=== PATIENT | female | born 1980 | race Caucasian/White ===

== ENCOUNTER 2023-08-27 13:48 | Inpatient (IN) ==
[2023-08-27 16:13] LABS: Basophils # (auto) 0.03 K/uL (0.00-0.20); Basophils % (auto) 0.4 %; Eosinophils % (auto) 1.5 %; Hematocrit (blood only) 36.9 % (37.0-47.0); Hemoglobin 11.3 g/dl (12.0-16.0); Immature Granulocytes # (auto) 0.03 K/uL (0.01-0.20); Immature Granulocytes % (auto) 0.4 %; Lymphocytes # (auto) 2.22 K/uL (1.20-3.40); Lymphocytes % (auto) 32.9 %; Mean Corpuscular Hemoglobin 27.2 pg (25.0-34.0); Mean Corpuscular Hgb Conc 30.6 g/dL (32.0-36.0); Mean Corpuscular Volume 88.9 fL (80.0-100.0); Mean Platelet Volume 9.1 fL (9.4-12.4); Monocytes # (auto) 0.52 K/uL (0.11-0.59); Monocytes % (auto) 7.7 %; Neutrophils # (auto) 3.85 K/uL (1.40-6.50); Neutrophils % (auto) 57.1 %; Platelet Count 228 K/uL (130-400); RDW Coefficient of Variation 15.6 % (11.5-14.5); RDW Standard Deviation 50.4 fL (36.4-46.3); Red Blood Count 4.15 M/uL (4.20-5.40); White Blood Count 6.75 K/ul (4.8-10.8)
[2023-08-27 16:28] LABS: Alanine Aminotransferase 11 U/L (7-52); Albumin Globulin Ratio 0.9 (0.9-2); Albumin Level 3.5 gm/dl (3.4-5.0); Alkaline Phosphatase 68 U/L (34-104); Anion Gap 5 (3-11); Aspartate Aminotransferase 17 U/L (13-39); BUN Creatinine Ratio 20.2 (10-20); Bilirubin,Total 0.4 mg/dl (0.2-1.0); Blood Urea Nitrogen 18 mg/dl (6-23); Calcium 8.5 mg/dl (8.6-10.3); Carbon Dioxide 25 mmol/L (21-32); Chloride 106 mmol/L (98-107); Est GFR (African American) 91.4 ml/min; Est GFR (Non-African American) 78.8 ml/min; Globulin 3.8 gm/dl (2.5-4.0); Glucose 134 mg/dl (70-99(Fasting)); Potassium 4.1 mmol/L (3.5-5.1); Sodium 136 mmol/L (136-145); Total Protein 7.3 gm/dl (6.0-8.3)
[2023-08-27 16:45] LABS: Partial Thromboplastin Time 26.8 Seconds (21.0-31.0); Prothrombin Time 10.5 Seconds (9.0-12.0)
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
[2023-08-27] MEDS ORDERED: oxyCODONE/ACETAMINOPHEN 5mg/325mg TAB PO STA (18:14)
[2023-08-27] MEDS ORDERED: OPTIRAY 320 500ml IV ONE (18:37)
--- NOTE | 2023-08-27 20:29 | CT Scan Report ---
Exam(s): CT ABDOMEN + PELVIS With Contrast IV Amt: 94ML OPTIRAY 320 EXAM: CT Abdomen and Pelvis With Intravenous Contrast CLINICAL HISTORY: Reason for exam: R back infection w/ open drainage. TECHNIQUE: Axial computed tomography images of the abdomen and pelvis with intravenous contrast. CTDI is 28.14 mGy and DLP is 1479.25 mGy-cm. Automated exposure control was utilized for the study. A dose lowering technique was utilized adhering to the principles of ALARA. CONTRAST: Patient received 94ML OPTIRAY 320 of IV contrast COMPARISON: None. FINDINGS: Lung bases: Bilateral lower lobe and lingular atelectasis. Heart: Unremarkable. No significant pericardial effusion. Normal cardiac size. ABDOMEN: Liver: Unremarkable. No mass. Gallbladder and bile ducts: Status post cholecystectomy. No ductal dilation. Pancreas: Unremarkable. No mass. No ductal dilation. Spleen: Unremarkable. No splenomegaly. Adrenals: Unremarkable. No mass. Kidneys and ureters: Unremarkable. No solid mass. No hydronephrosis. Stomach and bowel: Moderate to abundant fecal debris within the colon. No obstruction. No mucosal thickening. PELVIS: Appendix: Distinct appendix not visualized with no inflammatory process to suggest appendicitis. Bladder: Urinary bladder is decompressed. Reproductive: Anteverted uterus . ABDOMEN and PELVIS: Intraperitoneal space: Trace free fluid in the cul-de-sac, nonspecific. No free air. Bones/joints: Posterior fusion from L3-L5. Mild degenerative disease of the lower thoracic spine, bilateral SI joints and hips. There is mild stranding involving the posterior subcutaneous fat at the approximate T10. There are destructive changes involving the spinous process of T10 and posterolateral elements concerning for osteomyelitis. There is questionable small fluid collection identified at the tip of T9 spinous process measuring 5.4 x 1.0 cm concerning for a small abscess. There are inflammatory changes surrounding the soft tissues from spinous process of T8-T10. No acute fracture. No dislocation. Soft tissues: See above. Vasculature: Unremarkable. No abdominal aortic aneurysm. Lymph nodes: Unremarkable. No enlarged lymph nodes. IMPRESSION: 1. Findings most compatible with osteomyelitis involving the T10 level with extension into the posterior elements. Extensive inflammatory process within the soft tissues from spinous process of T8-T10 with suggestion of a small abscess at the tip of the spinous process of T9 vertebra. 2. Possible mild constipation, otherwise no acute process within the abdomen and pelvis be 3. Status post cholecystectomy, remainder of abdominal viscera are unremarkable. Electronically signed by: Ronda Steward MD 08/27/23 20:27 PM
[2023-08-27] MEDS ORDERED: VANCOMYCIN CONSULT ACTIVE PRN (20:46)
[2023-08-27] MEDS ORDERED: VANCOMYCIN HCL 2,750 MG in SODIUM CHLORIDE 0.9% 500 ML IV ONE (20:46)
[2023-08-27] MEDS ORDERED: LACTATED RINGER'S 1,000 ML IV SCH (22:51)
[2023-08-27] MEDS ORDERED: PROMETHAZINE HCL 12.5 MG in SODIUM CHLORIDE 0.9% 50 ML IV PRN (22:51)
[2023-08-27] MEDS ORDERED: ONDANSETRON INJ 2 MG/ML 2 ML VIAL IV PRN (22:51)
[2023-08-27] MEDS ORDERED: ACETAMINOPHEN 1,000 MG/100 ML VIAL IV PRN (22:51)
[2023-08-27] MEDS ORDERED: ONDANSETRON 4 MG OD TAB PO PRN (22:51)
[2023-08-27] MEDS ORDERED: LORazepam 0.5 MG TAB PO PRN (22:51)
[2023-08-27] MEDS ORDERED: PHARMACY GLYCEMIC MGMT CONSULT PRN (22:51)
[2023-08-27] MEDS ORDERED: METOCLOPRAMIDE HCL INJ 5 MG/ML 2 ML VIAL IV PRN (22:51)
[2023-08-27] MEDS ORDERED: NALOXONE HCL 0.4 MG/1 ML VIAL/CARP IV PRN (22:51)
[2023-08-27 23:39] LABS: Basophils # (auto) 0.05 K/uL (0.00-0.20); Basophils % (auto) 0.8 %; Eosinophils # (auto) 0.11 K/uL (0.00-0.50); Eosinophils % (auto) 1.8 %; Hematocrit (blood only) 32.9 % (37.0-47.0); Hemoglobin 10.2 g/dl (12.0-16.0); Immature Granulocytes # (auto) 0.02 K/uL (0.01-0.20); Immature Granulocytes % (auto) 0.3 %; Lymphocytes # (auto) 2.24 K/uL (1.20-3.40); Lymphocytes % (auto) 36.7 %; Mean Corpuscular Hemoglobin 27.2 pg (25.0-34.0); Mean Corpuscular Volume 87.7 fL (80.0-100.0); Mean Platelet Volume 9.1 fL (9.4-12.4); Monocytes % (auto) 8.2 %; Neutrophils # (auto) 3.19 K/uL (1.40-6.50); Neutrophils % (auto) 52.2 %; Platelet Count 202 K/uL (130-400); RDW Coefficient of Variation 15.6 % (11.5-14.5); RDW Standard Deviation 49.5 fL (36.4-46.3); Red Blood Count 3.75 M/uL (4.20-5.40); White Blood Count 6.11 K/ul (4.8-10.8)
[2023-08-27 23:56] LABS: Albumin Level 3.2 gm/dl (3.4-5.0); BUN Creatinine Ratio 21.4 (10-20); Bilirubin,Total 0.3 mg/dl (0.2-1.0); Calcium 7.7 mg/dl (8.6-10.3); Creatinine Clr Calc Pharmacy 118.2 ml/min; Est GFR (Non-African American) 84.5 ml/min; Globulin 3.2 gm/dl (2.5-4.0); Potassium 3.7 mmol/L (3.5-5.1); Total Protein 6.4 gm/dl (6.0-8.3)
[2023-08-27 23:58] LABS: Pregnancy Test, Serum Negative (Negative)
[2023-08-28] MEDS ORDERED: TOPIRAMATE 25 MG TAB PO SCH ×2 (00:15→09:00)
[2023-08-28] MEDS ORDERED: GLUCOSE 10 TAB/TUBE PO PRN (00:30)
[2023-08-28] MEDS ORDERED: GLUCAGON FOR INJ 1 MG VIAL IM PRN (00:30)
[2023-08-28] MEDS ORDERED: CARBOHYDRATES FOR HYPOGLYCEMIA PO PRN (00:30)
[2023-08-28] MEDS ORDERED: GLUCOSE 40% GEL 15 GM TUBE PO PRN (00:30)
[2023-08-28] MEDS ORDERED: DEXTROSE 50% 50 ML SYRINGE IV PRN (00:30)
[2023-08-28] MEDS ORDERED: CEFEPIME 2,000 MG/20 ML VIAL IV STA (00:34)
[2023-08-28] MEDS ORDERED: LACTATED RINGER'S 1,000 ML IV ONE (01:13)
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
[2023-08-28] MEDS: TOPIRAMATE 50 MG TAB PO SCH ×3 (01:47→20:38)
[2023-08-28] MEDS: PROPRANOLOL HCL 10 MG TAB PO SCH ×3 (01:48→20:38)
[2023-08-28] MEDS: MELATONIN 3 MG TAB PO SCH ×2 (01:50→21:33)
[2023-08-28] MEDS: oxyCODONE HCL IR 5 MG TAB (IMMEDIATE RELEASE) PO PRN ×3 (01:50→17:55)
[2023-08-28] MEDS: INSULIN ASPART PER UNIT CHARGE SC SCH ×5 (02:01→20:42)
[2023-08-28] MEDS: ZOLPIDEM TARTRATE 10 MG TAB PO PRN ×2 (02:02→21:33)
[2023-08-28] MEDS: CEFEPIME 2,000 MG in SYRINGE 0 ML IV SCH ×3 (02:05→17:50)
[2023-08-28] MEDS: LEVOTHYROXINE SODIUM 75 MCG TABLET PO SCH ×2 (06:44→08:08)
[2023-08-28 07:22] LABS: Basophils # (auto) 0.04 K/uL (0.00-0.20); Basophils % (auto) 0.6 %; Eosinophils # (auto) 0.13 K/uL (0.00-0.50); Hematocrit (blood only) 31.2 % (37.0-47.0); Hemoglobin 9.8 g/dl (12.0-16.0); Immature Granulocytes # (auto) 0.02 K/uL (0.01-0.20); Immature Granulocytes % (auto) 0.3 %; Lymphocytes # (auto) 1.95 K/uL (1.20-3.40); Lymphocytes % (auto) 30.7 %; Mean Corpuscular Hemoglobin 27.7 pg (25.0-34.0); Mean Corpuscular Hgb Conc 31.4 g/dL (32.0-36.0); Mean Corpuscular Volume 88.1 fL (80.0-100.0); Mean Platelet Volume 9.3 fL (9.4-12.4); Monocytes # (auto) 0.55 K/uL (0.11-0.59); Monocytes % (auto) 8.7 %; Neutrophils # (auto) 3.66 K/uL (1.40-6.50); Neutrophils % (auto) 57.7 %; Platelet Count 190 K/uL (130-400); RDW Coefficient of Variation 15.6 % (11.5-14.5); RDW Standard Deviation 49.2 fL (36.4-46.3); Red Blood Count 3.54 M/uL (4.20-5.40); White Blood Count 6.35 K/ul (4.8-10.8)
[2023-08-28 07:59] LABS: BUN Creatinine Ratio 22.4 (10-20); Calcium 7.8 mg/dl (8.6-10.3); Creatinine Clr Calc Pharmacy 130.6 ml/min; Est GFR (African American) 110.6 ml/min; Est GFR (Non-African American) 95.4 ml/min; Potassium 3.6 mmol/L (3.5-5.1)
[2023-08-28] MEDS: DIVALPROEX DELAY RELEASE 500 MG TAB PO SCH (08:08)
[2023-08-28] MEDS: GABAPENTIN 600 MG TAB PO SCH ×2 (08:08→20:38)
[2023-08-28] MEDS: buPROPion XL 150 MG TABCR PO SCH (08:08)
[2023-08-28] MEDS: PANTOprazole 40 MG TAB PO SCH (08:09)
[2023-08-28] MEDS: QUEtiapine FUMARATE 100 MG TABLET PO SCH (08:09)
[2023-08-28] MEDS: VENLAFAXINE HCL XR 75 MG CAPXR PO SCH (08:13)
[2023-08-28] MEDS: VENLAFAXINE HCL XR 150 MG CAPXR PO SCH (08:13)
[2023-08-28] MEDS ORDERED: PROPRANOLOL HCL 10 MG TAB PO SCH (09:00)
[2023-08-28] MEDS: VANCOMYCIN HCL 1,250 MG in SODIUM CHLORIDE 0.9% 250 ML IV SCH ×2 (09:08→20:37)
[2023-08-28] MEDS ORDERED: POLYETHYLENE (MIRALAX) 17 GM PACK PO PRN (09:47)
[2023-08-28 09:51] LABS: Estimated Average Glucose 163 mg/dl; Hemoglobin A1C 7.3 % (4.5-5.6)
--- NOTE | 2023-08-28 10:38 | Pharmacy Report ---
Pharmacy PK ABX Note - Date of Service August 28, 2023 - Assessment and Plan Assessment 43 year old F receiving vancomycin and cefepime for treatment of possible osteomyelitis/paravertebral abscess. * Day #1 of antimicrobial therapy. * HPI significant for spinal cord stimulator implanted in 06/2023 which subsequently became infected and required removal in 07/2023. * Wound cx from back in 07/2023 grew MSSA. Patient discharged on Nafcillin 2 g IV q6h x 6 weeks. * Labs/Vitals: Afebrile. No leukocytosis. Renal fxn stable. * Micro: Repeat blood cultures ordered and pending. * Imaging: * 08/27/23 CT A/P: "Findings most compatible with osteomyelitis involving the T10 level with extension into the posterior elements. Extensive inflammatory process within the soft tissues from spinous process of T8-T10 with suggestion of a small abscess at the tip of the spinous process of T9 vertebra." Plan Vancomycin * Loading dose: 2750 mg IV x 1 * Maintenance dose: 1250 mg IV every 12 hours * Regimen is predicted to achieve target AUC/STEPHANIE of 400-600 mg/L.hr * Random level ordered for: 08/30/23 Cefepime * 2000 mg IV every 8 hours Pharmacy will continue to follow and will adjust dose/frequency as necessary. Thank you. Pharmacy has transitioned to AUC monitoring for vancomycin. AUC/STEPHANIE is the preferred PK/PD target and is associated with decreased risk of nephrotoxicity compared to traditional trough targets.
--- NOTE | 2023-08-28 10:43 | Pharmacy Report ---
Pharmacy Glycemic Short Note 2 - Date of Service August 28, 2023 - Glycemic Short BSG Results (Last 24 hours): 08/27/23 08/27/23 08/28/23 15:47 23:15 01:46 Glucose 134 H 159 H POC Glucose 172 H 08/28/23 08/28/23 06:41 08:20 Glucose 120 H POC Glucose 129 H OUTPATIENT ANTIDIABETIC REGIMEN: * Metformin 500 mg PO AM * HbA1c: 7.3% (08/28/23) ASSESSMENT: * 43 yo F admitted on 08/27/23 secondary to possible vertebral osteomyelitis/abscess. Pharmacy has been consulted to assist with inpatient glycemic management. Patient is a Type 2 diabetic as an outpatient. Please refer to outpatient regimen and most recent HbA1c above. * BSGs have been at or near goal range since arrival: 134-159-172 mg/dL. * Fasting BSG 129 mg/dL, controlled. Continue to hold basal insulin. Possibility of surgical intervention. * Ordered and tolerating a regular diet so far. Continue with bolus insulin only for now. May need to transition to T2DM diet if steroids ordered or BSGs elevated. Goal BSG < 180 mg/dL to prevent spread/worsening of infection. PLAN FOR INPATIENT GLYCEMIC CONTROL: * Hold outpatient oral diabetes medications * Basal insulin * None * Bolus insulin * NovoLog per scale ACHS or Q6hrs while NPO * Goal Range: Low 110 mg/dL - High 140 mg/dL * Correction Factor: 30 mg/dL/unit * Nutritional / Prandial insulin per carb ratio of 1 unit per 9 grams CHO c onsumed
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
--- NOTE | 2023-08-28 11:20 | CT Scan Report ---
CT SCAN OF THE THORACIC SPINE WITHOUT IV CONTRAST CLINICAL HISTORY: Thoracic back pain. Clinical concern for osteomyelitis. COMPARISON STUDY: Abdominal CT dated 08/27/2023. TECHNIQUE: CT scan of the thoracic spine was performed from the lower cervical spine to the upper lum bar spine. Images are reviewed in the axial, sagittal, and coronal planes. IV contrast was not admini stered for this examination. A dose lowering technique was utilized adhering to the principles of ALA RA. CT DOSE: 1679.48 mGy.cm FINDINGS: The skeletal structures are well mineralized. Vertebral body height and alignment are maintained throughout the thoracic spine. Tiny anterior osteo phytes are seen throughout. There is postsurgical change from laminectomy at T10. The transverse proc esses appear intact. No lytic or blastic lesion is seen. Fusion hardware is noted in the lower cervic al spine. Mild multilevel degenerative disc space narrowing is observed. There is no CT evidence of c entral canal stenosis. There is a pocket of fluid partially visualized in the right lower back with s urrounding infiltration and antibiotic implants in place. This may represent the site of a previous i ntrathecal device. There is also fluid with mild surrounding infiltration and possible antibiotic imp lants within the soft tissues posterior to the thecal sac at the T10-T11 laminectomy site. No organiz ed collection is seen. No definite bony erosion is seen at this site. The bony defect identified at T 10 is likely postsurgical. There is a small tract seen between the inflammatory process at this site and the inflammatory process in the right lower back as seen on axial image #458. This tract also jeff roximates the dermal surface. The paraspinous soft tissues are otherwise normal in appearance. The vi sualized lung parenchyma is clear. IMPRESSION: 1. There is no evidence of acute fracture or malalignment involving the thoracic spine. 2. Postlaminectomy change is seen at T10, and an intrathecal device has likely been removed. Correlat e clinically. 3. There is a pocket of infiltration and fluid identified in the soft tissues of the right lower back which contains antibiotic implants. This likely represents the site of a previously implanted device . A thin tract connects this inflammatory process to the soft tissues posterior to the thecal sac at the T10 laminectomy site where there is also inflammation, trace fluid, and probable antibiotic impla nts. There is no evidence of drainable fluid collection at this time on this unenhanced CT scan. 4. The sharply marginated bony defect at T10 is likely on a postsurgical basis. Osteomyelitis is cons idered much less likely. Clinical correlation will be essential. Follow-up as clinically warranted. 5. Additional findings as above. ACT 112: Negative or not required by law. Dictated: 08/28/2023 10:27 AM Transcribed: 08/28/2023 10:55 AM Giovanny [id number] [email or web address] Electronically signed by: Noah Carcamo M.D. 08/28/2023 11:18 AM
[2023-08-28] MEDS ORDERED: metroNIDAZOLE 500 MG/100 ML BAG IV SCH (13:00)
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
--- NOTE | 2023-08-28 16:36 | Hospitalist Progress Note ---
Date of Service August 28, 2023 Assessment & Plan (1) Vertebral osteomyelitis: Plan: Acute osteomyelitis of thoracic spine Infection of spinal cord stimulator Postlaminectomy syndrome with chronic lumbar radiculopathy S/spinal cord stimulator placement on 07/24/2023 S/P I&D and evacuation of spinal cord stimulator and battery pack on 08/07/2023 --Thoracic CT:There is no evidence of acute fracture or malalignment involving the thoracic spine. Postlaminectomy change is seen at T10, and an intrathecal device has likely been removed. Correlate clinically. There is a pocket of infiltration and fluid identified in the soft tissues of the right lower back which contains antibiotic implants. This likely represents the site of a previously implanted device. A thin tract connects this inflammatory process to the soft tissues posterior to the thecal sac at the T10 laminectomy site where there is also inflammation, trace fluid, and probable antibiotic implants. There is no evidence of drainable fluid collection at this time on this unenhanced CT scan. The sharply marginated bony defect at T10 is likely on a postsurgical basis. Osteomyelitis is considered much less likely. Clinical correlation will be essential. Follow-up as clinically warranted. --Previous wound cultures grew MSSA: Failed Nafcillin treatment --Blood culture pending --Wound culture pending CRP pending Continue vancomycin, cefepime for now Appreciate ID input Orthopedics on board Plan for repeat I&D tomorrow N.p.o. after midnight DM II H/O diabetes mellitus HbA1c 7.3 Hold metformin Continue insulin while hospitalized Monitor BGs Will need adjustment of medications upon discharge Hypothyroidism Continue levothyroxine GERD Continue pantoprazole Morbid obesity BMI 46 H/O Traumatic brain injury/functional seizures Mood disorder Continue home medications Chronic anemia Hb at baseline Monitor CBC DVT Px: As per Ortho SCDs Encourage to Ambulate Admission and Anticipated Discharge Date Admission Date: August 27, 2023 Subjective Patient is seen and examined at bedside States having back pain Also reports having some drainage from surgical wound Denies any chest pain, dyspnea, dizziness, nausea, vomiting, abdominal pain No other complaints Review of Systems Review of Systems: All systems reviewed & are unremarkable except as noted in Subjective Physical Exam Physical Exam: Physical Exam: Vitals signs as noted above General Appearance:Obese, no apparent distress Head: normocephalic, Atraumatic Eyes: normal inspection, EOMI Neck: supple, Trachea midline Respiratory/Chest: Normal breath sounds, CTA, No accessory muscle use Cardiovascular: S1, S2, No murmur Abdomen/GI:Soft, Non tender, Bowel sounds present Back:+Surgical site in dressing Extremities/Musculoskeletal:normal inspection, no edema Neurologic/Psych:AAOX3, grossly no focal neurological deficits Skin: normal color, warm Results & Data Results & Data Vital Signs (Past 12 Hours) Vital Signs Temp Pulse Resp BP Pulse Ox O2 Del Method 08/28/23 15:11 36.7 C 08/28/23 14:57 84 16 123/81 97 Room Air 08/28/23 12:13 84 115/83 98 Room Air 08/28/23 08:22 36.7 C 71 100/67 99 Room Air Laboratory Results Short CBC 08/27/23 08/28/23 Range/Units 23:15 06:41 WBC 6.11 6.35 (4.8-10.8) K/ul Hgb 10.2 L 9.8 L (12.0-16.0) g/dl Hct 32.9 L 31.2 L (37.0-47.0) % Plt Count 202 190 (130-400) K/uL BMP 08/27/23 08/27/23 08/28/23 15:47 23:15 06:41 Sodium 136 136 137 Potassium 4.1 3.7 3.6 Chloride 106 106 107 Carbon Dioxide 25 24 24 BUN 18 18 17 Creatinine 0.89 0.84 0.76 Glucose 134 H 159 H 120 H Calcium 8.5 L 7.7 L 7.8 L Liver Function 08/27/23 08/27/23 Range/Units 15:47 23:15 Total Bilirubin 0.4 0.3 (0.2-1.0) mg/dl AST 17 13 (13-39) U/L ALT 11 10 (7-52) U/L Alkaline Phosphatase 68 65 (34-104) U/L Albumin 3.5 3.2 L (3.4-5.0) gm/dl
[2023-08-28 16:37] LABS: C Reactive Protein 2.66 mg/dl (0-0.5)
[2023-08-28] MEDS: DIVALPROEX DELAY RELEASE 250 MG TABEC PO SCH (20:38)
[2023-08-28] MEDS ORDERED: MELATONIN 3 MG TAB PO SCH (21:00)
[2023-08-28] MEDS ORDERED: ZOLPIDEM TARTRATE 10 MG TAB PO SCH (21:00)
[2023-08-29] MEDS: CEFEPIME 2,000 MG in SYRINGE 0 ML IV SCH ×3 (02:11→18:03)
[2023-08-29] MEDS: LEVOTHYROXINE SODIUM 75 MCG TABLET PO SCH (05:43)
[2023-08-29] MEDS ORDERED: FAMOTIDINE/PF 20 MG/2 ML VIAL IV ONE (06:57)
[2023-08-29] MEDS ORDERED: Nursing to Pharmacy Communication SCH ×2 (07:15→17:30)
[2023-08-29] MEDS: INSULIN ASPART PER UNIT CHARGE SC SCH ×4 (07:46→21:41)
[2023-08-29] MEDS: VANCOMYCIN HCL 1,250 MG in SODIUM CHLORIDE 0.9% 250 ML IV SCH ×2 (08:45→10:26)
[2023-08-29 08:55] LABS: Hematocrit (blood only) 31.8 % (37.0-47.0); Mean Corpuscular Hemoglobin 27.5 pg (25.0-34.0); Mean Corpuscular Hgb Conc 31.4 g/dL (32.0-36.0); Mean Corpuscular Volume 87.4 fL (80.0-100.0); Platelet Count 180 K/uL (130-400); RDW Coefficient of Variation 15.5 % (11.5-14.5); RDW Standard Deviation 48.9 fL (36.4-46.3); Red Blood Count 3.64 M/uL (4.20-5.40); White Blood Count 4.78 K/ul (4.8-10.8)
[2023-08-29] MEDS: buPROPion XL 150 MG TABCR PO SCH (09:01)
[2023-08-29] MEDS: PROPRANOLOL HCL 10 MG TAB PO SCH ×2 (09:02→21:45)
[2023-08-29] MEDS: DIVALPROEX DELAY RELEASE 500 MG TAB PO SCH (09:02)
[2023-08-29] MEDS: PANTOprazole 40 MG TAB PO SCH (09:02)
[2023-08-29] MEDS: GABAPENTIN 600 MG TAB PO SCH ×2 (09:02→21:42)
[2023-08-29] MEDS: VENLAFAXINE HCL XR 75 MG CAPXR PO SCH (09:03)
[2023-08-29] MEDS: TOPIRAMATE 50 MG TAB PO SCH ×2 (09:03→21:45)
[2023-08-29] MEDS: QUEtiapine FUMARATE 100 MG TABLET PO SCH (09:03)
[2023-08-29] MEDS: VENLAFAXINE HCL XR 150 MG CAPXR PO SCH (09:04)
[2023-08-29 09:08] LABS: Calcium 8.3 mg/dl (8.6-10.3); Potassium 3.8 mmol/L (3.5-5.1)
[2023-08-29 09:14] LABS: Creatinine Clr Calc Pharmacy 132.3 ml/min; Est GFR (African American) 112.4 ml/min; Est GFR (Non-African American) 96.9 ml/min
[2023-08-29] MEDS: ACETAMINOPHEN 500 MG TAB PO PRN ×2 (09:14→21:41)
[2023-08-29] MEDS ORDERED: LIDOCAINE 2% 2 ML VIAL/AMP(20MG/ML) INFIL ONE (12:08)
[2023-08-29] MEDS ORDERED: fentaNYL citrate PF 100 MCG/2 ML VIAL ONE (12:08)
[2023-08-29] MEDS ORDERED: PROPOFOL IV EMULSION 10 MG/ML 20 ML VIAL IV ONE ×2 (12:08→15:38)
[2023-08-29] MEDS ORDERED: MIDAZOLAM HCL 1 MG/ML 2ML VIAL ONE (12:08)
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
[2023-08-29] MEDS ORDERED: BUPIVACAINE/EPINEPHRINE 0.25% 1:200,000 30 ML VIAL ONE (14:11)
[2023-08-29] MEDS ORDERED: ceFAZolin 330 MG/ML 1 GM VIAL ONE (14:11)
[2023-08-29] MEDS: LACTATED RINGER'S 1,000 ML IV SCH (14:15)
[2023-08-29] MEDS ORDERED: SCOPOLAMINE 1 MG TDSY TD ONE (14:22)
[2023-08-29] MEDS ORDERED: fentaNYL citrate PF 100 MCG/2 ML VIAL IV PRN (14:29)
[2023-08-29] MEDS ORDERED: ePHEDrine sulfate 50 MG/ML AMP IV PRN (14:29)
[2023-08-29] MEDS ORDERED: ATROPINE SULFATE 0.1 MG/ML 10ML SYR IV PRN (14:29)
[2023-08-29] MEDS ORDERED: PROMETHAZINE HCL 12.5 MG in SODIUM CHLORIDE 0.9% 50 ML IV PRN (14:29)
[2023-08-29] MEDS ORDERED: ONDANSETRON INJ 2 MG/ML 2 ML VIAL IV PRN (14:29)
[2023-08-29] MEDS ORDERED: FLUMAZENIL 0.1 MG/1 ML 10 ML VIAL IV PRN (14:29)
[2023-08-29] MEDS ORDERED: NALOXONE HCL 0.4 MG/1 ML VIAL/CARP IV PRN (14:29)
[2023-08-29] MEDS ORDERED: SCOPOLAMINE 1 MG TDSY TD SCH (14:30)
--- NOTE | 2023-08-29 14:49 | History & Physical Bridge Note ---
Date of Service August 29, 2023 History & Physical Bridge Note I have examined the patient, reviewed the History & Physical and in the interval since the performance of the History & Physical I have noted the following changes of clinical significance: no changes noted Irrigation and debridement lumbar flank
--- NOTE | 2023-08-29 15:03 | Hospitalist Progress Note ---
Date of Service August 29, 2023 Assessment & Plan (1) Vertebral osteomyelitis: Plan: Acute osteomyelitis of thoracic spine Infection of spinal cord stimulator Postlaminectomy syndrome with chronic lumbar radiculopathy S/spinal cord stimulator placement on 07/24/2023 S/P I&D and evacuation of spinal cord stimulator and battery pack on 08/07/2023 --Thoracic CT:There is no evidence of acute fracture or malalignment involving the thoracic spine. Postlaminectomy change is seen at T10, and an intrathecal device has likely been removed. Correlate clinically. There is a pocket of infiltration and fluid identified in the soft tissues of the right lower back which contains antibiotic implants. This likely represents the site of a previously implanted device. A thin tract connects this inflammatory process to the soft tissues posterior to the thecal sac at the T10 laminectomy site where there is also inflammation, trace fluid, and probable antibiotic implants. There is no evidence of drainable fluid collection at this time on this unenhanced CT scan. The sharply marginated bony defect at T10 is likely on a postsurgical basis. Osteomyelitis is considered much less likely. Clinical correlation will be essential. Follow-up as clinically warranted. --Previous wound cultures grew MSSA: Failed Nafcillin treatment --Blood culture pending - NGTD --Wound culture pending - pinpoint colonies re incubating CRP 2.66 Continue vancomycin, cefepime for now Appreciate ID input anticipate minimum 6-8 week duration of antibiotic therapy, further recs to follow Orthopedics on board Plan for repeat I&D today await intraoperative culture results DM II H/O diabetes mellitus HbA1c 7.3 Hold metformin Continue insulin while hospitalized Monitor BGs Will need adjustment of medications upon discharge Hypothyroidism Continue levothyroxine GERD Continue pantoprazole Morbid obesity BMI 46 H/O Traumatic brain injury/functional seizures Mood disorder Continue home medications Chronic anemia Hb at baseline Monitor CBC DVT Px: As per Ortho SCDs Encourage to Ambulate Pt was seen and examined in collaboration with Dr. Hua, please see addendum Admission and Anticipated Discharge Date Admission Date: August 27, 2023 Supervising Physician Co-Signing Physician Notes Patient is seen and examined at bedside. States having minimal headache this morning. Denies any significant back pain today. Plan for I&D today. Denies any chest pain, dyspnea, dizziness, nausea, vomiting, abdominal pain. On exam patient is obese, no apparent distress, normocephalic/atraumatic, EOMI, normal breath sounds, clear to auscultation, S1-S2, no murmur, no peripheral edema, abdomen soft, nontender, normal bowel sounds, alert, awake, oriented, grossly no focal deficits. Acute osteomyelitis of thoracic spine, infection of spinal cord stimulator, postlaminectomy syndrome with chronic lumbar radiculopathy. Plan for I&D today. Continue broad-spectrum IV antibiotics for now. Titrate antibiotics based on cultures. Appreciate ID input. Pain control. Bowel regimen to prevent constipation. Appreciate orthopedics help. I personally reviewed the record. Patient is interviewed and examined at bedside. Patient's care is coordinated with Vijaya Ryan PA-C. Please refer to the documentation above for details of patient's presentation and for discussion of other issues. Subjective Patient seen and examined in room 361. Follow-up vertebral osteomyelitis. She continues to have pain around incision site. She denies any radicular symptoms. She has been n.p.o. since midnight. Denies f/c/s, chest pain, sob, n/v/d. Review of Systems Review of Systems: All systems reviewed & are unremarkable except as noted in HPI & below Physical Exam Physical Exam: Gen: WD/WN, NAD, A&O x3 HEENT: Normocephalic, atraumatic, conjunctivae moist, sclerae anicteric, mucous membranes moist. Lung: Clear to Auscultation bilaterally, no wheezes/rales/rhonchi Heart: Regular rate, regular rhythm, no murmurs, rubs, or gallops Abdomen: Soft, NT, ND +BS x 4 Extremities: No edema, lumbar dressing CDI Skin: Warm, no rash, negative turgor. Results & Data Results & Data Vital Signs (Past 12 Hours) Vital Signs Temp Pulse Resp BP Pulse Ox O2 Del Method 08/29/23 14:09 36.8 C 88 24 147/85 H 99 Room Air 08/29/23 13:53 36.6 C 75 16 108/74 98 Room Air 08/29/23 07:15 36.5 C 79 18 123/82 97 Room Air Laboratory Results Short CBC 08/28/23 08/29/23 Range/Units 06:41 08:35 WBC 6.35 4.78 L (4.8-10.8) K/ul Hgb 9.8 L 10.0 L (12.0-16.0) g/dl Hct 31.2 L 31.8 L (37.0-47.0) % Plt Count 190 180 (130-400) K/uL BMP 08/28/23 08/29/23 06:41 08:35 Sodium 137 137 Potassium 3.6 3.8 Chloride 107 106 Carbon Dioxide 24 25 BUN 17 12 Creatinine 0.76 0.75 Glucose 120 H 143 H Calcium 7.8 L 8.3 L Medications Administered Current Inpatient Medications Acetaminophen (Acetaminophen 500 Mg Tab) 1,000 mg PO Q8H PRN PRN Reason: MILD Pain Scale 1,2,3 & Pre PT Stop: 09/26/23 22:50 Last Admin: 08/29/23 09:14 Dose: 1,000 mg Atropine Sulfate (Atropine Sulfate 0.1 Mg/Ml 10ml Syr) 0.5 mg IV Q1M PRN PRN Reason: PACU Use-HR<40 &/or Bradycardi Stop: 08/29/23 22:29 Bupropion HCl (Bupropion Xl 150 Mg Tabcr) 150 mg PO QAM FRANCESCA Stop: 09/27/23 08:59 Last Admin: 08/29/23 09:01 Dose: 150 mg Dextrose (Dextrose 50% 50 Ml Syringe) 25 - 50 ml IV UD PRN; Protocol PRN Reason: Hypoglycemia Protocol Stop: 09/27/23 00:29 Divalproex Sodium (Divalproex Delay Release 250 Mg Tabec) 250 mg PO HS FRANCESCA Stop: 09/27/23 20:59 Last Admin: 08/28/23 20:38 Dose: 250 mg Divalproex Sodium (Divalproex Delay Release 500 Mg Tab) 500 mg PO QAM FRANCESCA Stop: 09/27/23 08:59 Last Admin: 08/29/23 09:02 Dose: 500 mg Docusate Sodium (Docusate Sodium 100 Mg Cap) 100 mg PO BID PRN PRN Reason: Constipation Stop: 09/27/23 09:59 Ephedrine Sulfate (Ephedrine Sulfate 50 Mg/Ml Amp) 5 mg IV Q5M PRN PRN Reason: PACU Use Only-SBP<90 mmHg Stop: 08/29/23 22:29 Fentanyl Citrate (Fentanyl Citrate Pf 100 Mcg/2 Ml Vial) 25 mcg IV Q5M PRN PRN Reason: PACU Use Only-Pain Stop: 08/29/23 22:29 Flumazenil (Flumazenil 0.1 Mg/1 Ml 10 Ml Vial) 0.2 mg IV Q2M PRN PRN Reason: PACU Use Only-Benzo Reversal Stop: 08/29/23 22:29 Gabapentin (Gabapentin 600 Mg Tab) 600 mg PO BID FRANCESCA Stop: 09/27/23 08:59 Last Admin: 08/29/23 09:02 Dose: 600 mg Glucagon (Glucagon For Inj 1 Mg Vial) 1 mg IM UD PRN; Protocol PRN Reason: Hypoglycemia Protocol Stop: 09/27/23 00:29 Glucose (Glucose 40% Gel 15 Gm Tube) 15 - 30 gm PO UD PRN; Protocol PRN Reason: Hypoglycemia Protocol Stop: 09/27/23 00:29 Glucose (Glucose 10 Tab/Tube) 4 - 8 tab PO UD PRN; Protocol PRN Reason: Hypoglycemia Protocol Stop: 09/27/23 00:29 Heparin Sodium (Beef Lung) (Heparin 10 Unit/Ml 5 Ml Flush) 5 ml FLUSH PRN PRN PRN Reason: Flush Stop: 09/27/23 16:29 Last Admin: 08/28/23 17:51 Dose: 5 ml Promethazine HCl 12.5 mg/ (Sodium Chloride) 50.5 mls @ 202 mls/hr IV Q6H PRN PRN Reason: Nausea &/or Vomiting Stop: 09/26/23 22:50 Cefepime HCl 2,000 mg/ Syringe 20 mls @ 5 mls/min IV Q8H FRANCESCA; Protocol Stop: 10/09/23 01:14 Last Admin: 08/29/23 10:31 Dose: 5 mls/min Vancomycin HCl 1,250 mg/ (Sodium Chloride) 275 mls @ 200 mls/hr IV Q12H FRANCESCA Stop: 10/09/23 08:59 Last Infusion: 08/29/23 10:30 Dose: Infused Lactated Ringer's (Lr) 1,000 mls @ 15 mls/hr IV .Q24H FRANCESCA Stop: 09/28/23 14:14 Last Admin: 08/29/23 14:15 Dose: 15 mls/hr Promethazine HCl 12.5 mg/ (Sodium Chloride) 50.5 mls @ 204 mls/hr IV ONCE PRN PRN Reason: PACU Use Only-Nausea/Vomiting Stop: 08/29/23 22:29 Insulin Aspart (Insulin Aspart Per Unit Charge) 0 units SC Q6 [facility] Stop: 09/27/23 00:29 Last Admin: 08/29/23 12:08 Dose: 1 units Levothyroxine Sodium (Levothyroxine Sodium 75 Mcg Tablet) 75 mcg PO DAILYBB [facility] Stop: 09/27/23 06:29 Last Admin: 08/29/23 05:43 Dose: 75 mcg Lorazepam (Lorazepam 0.5 Mg Tab) 0.5 mg PO Q8H PRN PRN Reason: sedation/anxiety Stop: 09/26/23 22:50 Melatonin (Melatonin 3 Mg Tab) 3 mg PO HS [facility] Stop: 09/27/23 00:14 Last Admin: 08/28/23 21:33 Dose: 3 mg Metoclopramide HCl (Metoclopramide Hcl Inj 5 Mg/Ml 2 Ml Vial) 10 mg IV Q6H PRN PRN Reason: Nausea &/or Vomiting Stop: 09/26/23 22:50 Miscellaneous (Carbohydrates For Hypoglycemia ) 15 - 30 gm PO UD PRN PRN Reason: Hypoglycemia Treatment Stop: 09/27/23 00:29 Miscellaneous (Remove Transderm-Scop Patch) 1 each N/A Q72H [facility] Stop: 10/01/23 14:29 Miscellaneous (Check Scopolamine Patch Placement) 1 each N/A QS [facility] Stop: 09/28/23 15:59 Miscellaneous Information (Vancomycin Consult Active) 1 each N/A UD PRN PRN Reason: Consult Stop: 09/26/23 20:45 Miscellaneous Information (Pharmacy Glycemic Mgmt Consult) 1 each N/A UD PRN PRN Reason: Consult Stop: 09/26/23 22:50 Naloxone HCl (Naloxone Hcl 0.4 Mg/1 Ml Vial/Carp) 0.1 mg IV Q5M PRN PRN Reason: Oversedation/respiratory dep Stop: 09/26/23 22:50 Naloxone HCl (Naloxone Hcl 0.4 Mg/1 Ml Vial/Carp) 0.2 mg IV Q2M PRN PRN Reason: PACU Use Only-Opiate Reversal Stop: 08/29/23 22:29 Ondansetron HCl (Ondansetron Inj 2 Mg/Ml 2 Ml Vial) 4 mg IV Q6H PRN PRN Reason: Nausea &/or Vomiting Stop: 09/26/23 22:50 Ondansetron HCl (Ondansetron 4 Mg Od Tab) 4 mg PO Q6H PRN PRN Reason: Nausea Stop: 09/26/23 22:50 Ondansetron HCl (Ondansetron Inj 2 Mg/Ml 2 Ml Vial) 4 mg IV ONCE PRN PRN Reason: PACU Use Only-Nausea/Vomiting Stop: 08/29/23 22:29 Oxycodone HCl (Oxycodone Hcl Ir 5 Mg Tab (Immediate Release)) 5 - 10 mg PO Q4H PRN PRN Reason: mod to severe pain Stop: 09/10/23 22:50 Last Admin: 08/28/23 17:55 Dose: 10 mg Pantoprazole Sodium (Pantoprazole 40 Mg Tab) 40 mg PO QAM [facility] Stop: 09/27/23 08:59 Last Admin: 08/29/23 09:02 Dose: 40 mg Polyethylene Glycol (Polyethylene (Miralax) 17 Gm Pack) 17 gm PO DAILY PRN PRN Reason: Constipation Stop: 09/27/23 09:46 Propranolol HCl (Propranolol Hcl 10 Mg Tab) 10 mg PO BID [facility] Stop: 09/27/23 00:14 Last Admin: 08/29/23 09:02 Dose: 10 mg Quetiapine Fumarate (Quetiapine Fumarate 100 Mg Tablet) 100 mg PO QAM [facility] Stop: 09/27/23 08:59 Last Admin: 08/29/23 09:03 Dose: 100 mg Scopolamine (Scopolamine 1 Mg Tdsy) 1 mg TD Q72H [facility] Stop: 09/28/23 14:29 Last Admin: 08/29/23 14:38 Dose: Not Given Topiramate (Topiramate 50 Mg Tab) 150 mg PO BID [facility] Stop: 09/27/23 00:09 Last Admin: 08/29/23 09:03 Dose: 150 mg Venlafaxine HCl (Venlafaxine Hcl Xr 75 Mg Capxr) 75 mg PO QAM [facility] Stop: 09/27/23 08:59 Last Admin: 08/29/23 09:03 Dose: 75 mg Venlafaxine HCl (Venlafaxine Hcl Xr 150 Mg Capxr) 150 mg PO QAM [facility]ESCA Stop: 09/27/23 08:59 Last Admin: 08/29/23 09:04 Dose: 150 mg Zolpidem Tartrate (Zolpidem Tartrate 10 Mg Tab) 10 mg PO HS PRN PRN Reason: Sleep Stop: 09/27/23 00:14 Last Admin: 08/28/23 21:33 Dose: 10 mg
[2023-08-29] MEDS ORDERED: ROCURONIUM BROMIDE 10 MG/ML 5 ML VIAL IV ONE (15:39)
[2023-08-29] MEDS ORDERED: DEXAMETHASONE SOD INJ 4 MG/ML VIAL ONE (15:39)
[2023-08-29] MEDS ORDERED: ONDANSETRON INJ 2 MG/ML 2 ML VIAL ONE (15:39)
[2023-08-29] MEDS ORDERED: GLYCOPYRROLATE 0.2 MG/ML VIAL ONE (15:40)
[2023-08-29] MEDS ORDERED: NEOSTIGMINE METHYLSULFATE 1 MG/ML 10ML VIAL ONE (15:40)
--- NOTE | 2023-08-29 15:41 | Operative Report ---
Post Operative Report Pre & Post Diagnosis Operation Date: 08/29/23 13:55 Pre-Op Diagnosis: Right flank infection Postoperative diagnosis: Same I identified the patient and participated in the time-out.: Yes Procedure Operation Date: 08/29/23 13:55 Irrigation debridement right flank infection at the site of the previous battery pocket for the spinal cord stimulator Surgeon Dionicio Montana DO Support Staff Sherri Chavez Estimated Blood Loss 10 Findings Consistent with Post-Op Diagnosis Specimens Cultures taken from the wound site aerobic anaerobic Gram stain and fungal Indications This is a 43-year-old female well-known to us that status post removal of a spinal cord stimulator secondary to infection. Her battery pocket on the right flank continued to drain and she is here for I&D. Description of Procedure Patient was met with identified informed consent obtained. Patient was then taken to the operative suite underwent ablation placed upon position ingestible topicals and frame. Operative promises well-padded eyes inspected to ensure no external precipice monitor at this point the right flank lumbar spine was prepped and draped in a sterile fashion. The battery pocket was opened this approximately 10 cc of purulent fluid was noted. Cultures were obtained. I debrided all compromised tissue. Was then copiously irrigated with antibiotic solution and a 10 round JUAN JOSE drain inserted. Was then closed with subcutaneous Vicryl and wong for final skin closure. Patient was awakened taken to PACU stable condition. Please note Sherri Chavez was present at the entire procedure involved patient positioning complex portion of the surgery and final skin closure. I attest to the content of the Intraoperative Record and any orders documented therein. Any exceptions are noted below.
--- NOTE | 2023-08-29 16:27 | Anesthesiology Progress Note ---
Date of Service August 29, 2023 Anesthesia Post Procedure Vital Signs Vital Signs: Temp Pulse Pulse Pulse Resp BP Pulse Ox 08/29/23 16:15 57 L 20 117/70 97 08/29/23 16:05 63 14 123/71 100 08/29/23 15:56 36.1 C L 73 11 L 140/80 100 08/29/23 14:09 36.8 C 88 24 147/85 H 99 08/29/23 13:53 36.6 C 75 16 108/74 98 08/29/23 07:15 36.5 C 79 18 123/82 97 08/28/23 19:18 36.7 C 101 H 18 125/85 96 O2 Del Method O2 Flow Rate 08/29/23 16:15 Oxymask 5 08/29/23 16:05 Oxymask 5 08/29/23 15:56 Oxymask 5 08/29/23 14:09 Room Air 08/29/23 13:53 Room Air 08/29/23 07:15 Room Air 08/28/23 19:18 Room Air Pain Intensity Right Lower Back: Pain Intensity: 5 Transfer of Care Handoff Completed per policy Notes Mental Status: alert / awake / arousable Patient Amnestic to Procedure: Yes Nausea / Vomiting: adequately controlled Pain: adequately controlled Airway Patency, RR, SpO2: stable & adequate BP & HR: stable & adequate Hydration State: stable & adequate Anesthetic Complications: no major complications apparent
[2023-08-29] MEDS: CHECK SCOPOLAMINE PATCH PLACEMENT SCH (17:21)
[2023-08-29] MEDS: oxyCODONE HCL IR 5 MG TAB (IMMEDIATE RELEASE) PO PRN (21:40)
[2023-08-29] MEDS: DIVALPROEX DELAY RELEASE 250 MG TABEC PO SCH (21:43)
[2023-08-29] MEDS: MELATONIN 3 MG TAB PO SCH (21:44)
[2023-08-30] MEDS: CHECK SCOPOLAMINE PATCH PLACEMENT SCH ×3 (00:14→17:08)
[2023-08-30] MEDS: CEFEPIME 2,000 MG in SYRINGE 0 ML IV SCH ×3 (01:57→17:28)
[2023-08-30] MEDS: LEVOTHYROXINE SODIUM 75 MCG TABLET PO SCH (06:30)
[2023-08-30] MEDS ORDERED: VANCOMYCIN LEVEL SCH (08:00)
[2023-08-30 08:02] LABS: Hematocrit (blood only) 31.6 % (37.0-47.0); Mean Corpuscular Hemoglobin 27.9 pg (25.0-34.0); Mean Corpuscular Hgb Conc 31.6 g/dL (32.0-36.0); Mean Platelet Volume 9.2 fL (9.4-12.4); Platelet Count 187 K/uL (130-400); RDW Coefficient of Variation 15.5 % (11.5-14.5); RDW Standard Deviation 49.6 fL (36.4-46.3); Red Blood Count 3.59 M/uL (4.20-5.40); White Blood Count 6.54 K/ul (4.8-10.8)
[2023-08-30 08:28] LABS: BUN Creatinine Ratio 16.3 (10-20); Calcium 8.4 mg/dl (8.6-10.3); Creatinine Clr Calc Pharmacy 124.1 ml/min; Est GFR (African American) 103.9 ml/min; Est GFR (Non-African American) 89.7 ml/min; Potassium 3.9 mmol/L (3.5-5.1)
[2023-08-30] MEDS ORDERED: VANCOMYCIN HCL 2,500 MG in SODIUM CHLORIDE 0.9% 500 ML IV ONE (09:00)
[2023-08-30] MEDS: INSULIN ASPART PER UNIT CHARGE SC SCH ×4 (09:04→20:30)
[2023-08-30] MEDS: GABAPENTIN 600 MG TAB PO SCH ×2 (09:05→20:31)
[2023-08-30] MEDS: PROPRANOLOL HCL 10 MG TAB PO SCH ×2 (09:06→20:32)
[2023-08-30] MEDS: buPROPion XL 150 MG TABCR PO SCH (09:06)
[2023-08-30] MEDS: VENLAFAXINE HCL XR 75 MG CAPXR PO SCH (09:06)
[2023-08-30] MEDS: PANTOprazole 40 MG TAB PO SCH (09:06)
[2023-08-30] MEDS: VENLAFAXINE HCL XR 150 MG CAPXR PO SCH (09:06)
[2023-08-30] MEDS: QUEtiapine FUMARATE 100 MG TABLET PO SCH (09:06)
[2023-08-30] MEDS: DIVALPROEX DELAY RELEASE 500 MG TAB PO SCH (09:26)
--- NOTE | 2023-08-30 10:46 | Orthopedic Progress Note ---
Date of Service August 30, 2023 Assessment & Plan (1) Status post incision and drainage: Plan: Kareen is postoperative day 1 status post I&D right flank/spinal cord stim battery pack site. We will maintain JUAN JOSE drain. Ambulate ad nabor. Currently awaiting final recommendations for antibiotic therapy from infectious disease. Will hopefully be able to discharge home within the next couple of days. Admission and Anticipated Discharge Date Admission Date: August 27, 2023 Kathy Vargas is postoperative day 1 status post I&D right flank/spinal cord stim battery pack site. She feels a lot better today. She is up and ambulatory around the room and using the restroom without issue. JUAN JOSE drain output last shift was 15 cc. Currently on vancomycin and cefepime. Blood cultures are currently no growth to date. Intraoperative cultures are still pending. Swab from the ER on 08 28 is coag negative staph Review of Systems Review of Systems: All systems reviewed & are unremarkable except as noted in HPI & below Physical Exam Physical Exam: She sitting in bed in no acute distress Alert and oriented x3 Afebrile Right flank dressing is clean dry and intact functioning JUAN JOSE drain Strength unchanged bilateral lower extremities Results & Data Vital Signs (Past 12 Hours) Vital Signs Temp Pulse Pulse Resp BP Pulse Ox O2 Del Method 08/30/23 07:25 36.6 C 72 16 109/72 97 Room Air 08/30/23 00:00 Room Air 08/29/23 23:13 36.5 C 78 18 144/84 H 96 Room Air
--- NOTE | 2023-08-30 11:36 | Pharmacy Report ---
Pharmacy PK ABX Note - Date of Service August 30, 2023 - Assessment and Plan Assessment 08/30: * Day #4 of Vancomycin therapy. Patient had been getting Vancomycin 1250 mg IV q12h with a level due this morning. * However, last night's dose of Vancomycin at 9 pm was missed due to MAR charting error. * Level resulted this morning as 6.4 mcg/ml, which is sub-therapeutic. * Renal function is stable. 08/28/23: 43 year old F receiving vancomycin and cefepime for treatment of possible osteomyelitis/paravertebral abscess. * Day #1 of antimicrobial therapy. * HPI significant for spinal cord stimulator implanted in 06/2023 which subsequently became infected and required removal in 07/2023. * Wound cx from back in 07/2023 grew MSSA. Patient discharged on Nafcillin 2 g IV q6h x 6 weeks. * Labs/Vitals: Afebrile. No leukocytosis. Renal fxn stable. * Micro: Repeat blood cultures ordered and pending. * Imaging: * 08/27/23 CT A/P: "Findings most compatible with osteomyelitis involving the T10 level with extension into the posterior elements. Extensive inflammatory process within the soft tissues from spinous process of T8-T10 with suggestion of a small abscess at the tip of the spinous process of T9 vertebra." Plan Vancomycin * Since last night's Vancomycin dose was missed, Vancomycin 2500 mg IV (added the missed dose to AM dose = 15 mg/kg) was given this morning- this also serves as a partial load for patient. * Then continue with same regimen Vancomycin 1250 mg IV q12h. * Level obtained this morning is invalid due to missed dose. * A new Random level is ordered for tomorrow before dose at 9 am Cefepime * 2000 mg IV every 8 hours Pharmacy will continue to follow and will adjust dose/frequency as necessary. Thank you. Pharmacy has transitioned to AUC monitoring for vancomycin. AUC/STEPHANIE is the preferred PK/PD target and is associated with decreased risk of nephrotoxicity compared to traditional trough targets.
--- NOTE | 2023-08-30 11:39 | Pharmacy Report ---
Pharmacy Glycemic Short Note 2 - Date of Service August 30, 2023 - Glycemic Short BSG Results (Last 24 hours): 08/29/23 08/29/23 08/29/23 11:59 16:09 16:48 Glucose POC Glucose 151 H 117 H 118 H 08/29/23 08/30/23 08/30/23 20:28 07:32 07:42 Glucose 127 H POC Glucose 152 H 119 H 08/30/23 11:35 Glucose POC Glucose 144 H OUTPATIENT ANTIDIABETIC REGIMEN: * Metformin 500 mg PO AM * HbA1c: 7.3% (08/28/23) ASSESSMENT: 08/30: * Patient is post op day 1 today s/p I&D of R flank infection/ spinal cord battery pack site. Receiving IV antibiotics. * BSGs yesterday were 494-665-001-152 mg/dl. * She received total 13 units of bolus insulin and no basal. * Since BSGs are well controlled, continue same parameters for Novolog. No basal insulin ordered. 08/28: * 43 yo F admitted on 08/27/23 secondary to possible vertebral osteomyelitis/abscess. Pharmacy has been consulted to assist with inpatient glycemic management. Patient is a Type 2 diabetic as an outpatient. Please refer to outpatient regimen and most recent HbA1c above. * BSGs have been at or near goal range since arrival: 134-159-172 mg/dL. * Fasting BSG 129 mg/dL, controlled. Continue to hold basal insulin. Possibility of surgical intervention. * Ordered and tolerating a regular diet so far. Continue with bolus insulin only for now. May need to transition to T2DM diet if steroids ordered or BSGs elevated. Goal BSG < 180 mg/dL to prevent spread/worsening of infection. PLAN FOR INPATIENT GLYCEMIC CONTROL: * Hold outpatient oral diabetes medications * Basal insulin * None * Bolus insulin * NovoLog per scale ACHS or Q6hrs while NPO * Goal Range: Low 110 mg/dL - High 140 mg/dL * Correction Factor: 30 mg/dL/unit * Nutritional / Prandial insulin per carb ratio of 1 unit per 9 grams CHO consumed
[2023-08-30] MEDS: TOPIRAMATE 50 MG TAB PO SCH ×2 (12:18→20:31)
[2023-08-30] MEDS: oxyCODONE HCL IR 5 MG TAB (IMMEDIATE RELEASE) PO PRN (12:22)
[2023-08-30] MEDS: LACTATED RINGER'S 1,000 ML IV SCH (15:36)
--- NOTE | 2023-08-30 15:57 | Hospitalist Progress Note ---
Date of Service August 30, 2023 Assessment & Plan (1) Vertebral osteomyelitis: Plan: Acute osteomyelitis of thoracic spine Infection of spinal cord stimulator Postlaminectomy syndrome with chronic lumbar radiculopathy S/spinal cord stimulator placement on 07/24/2023 S/P I&D and evacuation of spinal cord stimulator and battery pack on 08/07/2023 --Thoracic CT:There is no evidence of acute fracture or malalignment involving the thoracic spine. Postlaminectomy change is seen at T10, and an intrathecal device has likely been removed. Correlate clinically. There is a pocket of infiltration and fluid identified in the soft tissues of the right lower back which contains antibiotic implants. This likely represents the site of a previously implanted device. A thin tract connects this inflammatory process to the soft tissues posterior to the thecal sac at the T10 laminectomy site where there is also inflammation, trace fluid, and probable antibiotic implants. There is no evidence of drainable fluid collection at this time on this unenhanced CT scan. The sharply marginated bony defect at T10 is likely on a postsurgical basis. Osteomyelitis is considered much less likely. Clinical correlation will be essential. Follow-up as clinically warranted. Orthopedics on board --Previous wound cultures grew MSSA: Failed Nafcillin treatment --Blood culture pending - NGTD --Wound culture pending - pinpoint colonies re incubating S/p Irrigation debridement right flank infection at the site of the previous battery pocket for the spinal cord stimulator 08/29 Continue vancomycin, cefepime for now Appreciate ID input anticipate minimum 6-8 week duration of antibiotic therapy, further recs to follow Await final intraoperative culture results DM II H/O diabetes mellitus HbA1c 7.3 Hold metformin Continue insulin while hospitalized Monitor BGs Will need adjustment of medications upon discharge Hypothyroidism Continue levothyroxine GERD Continue pantoprazole Morbid obesity BMI 46 H/O Traumatic brain injury/functional seizures Mood disorder Continue home medications Chronic anemia Hb at baseline Monitor CBC DVT Px: As per Ortho SCDs Encourage to Ambulate Pt was seen and examined in collaboration with Dr. Hua, please see addendum Admission and Anticipated Discharge Date Admission Date: August 27, 2023 Supervising Physician Co-Signing Physician Notes Patient is seen and examined at bedside. Doing well today. No new complaints. Denies any chest pain, dyspnea, dizziness, nausea, vomiting, abdominal pain. On exam patient is obese, no apparent distress, normocephalic/atraumatic, EOMI, normal breath sounds, clear to auscultation, S1-S2, no murmur, no peripheral edema, abdomen soft, nontender, normal bowel sounds, alert, awake, oriented, grossly no focal deficits. Acute osteomyelitis of thoracic spine, infection of spinal cord stimulator, postlaminectomy syndrome with chronic lumbar radiculopathy. S/P irrigation debridement right flank infection at the site of previous battery pocket for spinal cord stimulator with Dr. Montana on 08/29/2023. Wound cultures pending. Continue broad-spectrum IV antibiotics Vanco, cefepime for now. Titrate antibiotics based on cultures. Appreciate ID input. Pain control. Bowel regimen to prevent constipation. Appreciate orthopedics help. I personally reviewed the record. Patient is interviewed and examined at bedside. Patient's care is coordinated with Venus Nixon PA-C. Please refer to the documentation above for details of patient's presentation and for discussion of other issues. Subjective Seen and examined in 361-1. No acute changes overnight. Feeling well and not in pain at rest. Tolerating diet without issue. No F/C, lightheadedness, CP, SOB, abd pain, dysuria, diarrhea or constipation. Review of Systems Review of Systems: At least ten systems reviewed and negative except as noted in the HPI. Physical Exam Physical Exam: Gen: WD/WN, NAD, sitting up in bed on the phone, A&Ox3 HEENT: Normocephalic, atraumatic, conjunctivae moist, sclerae anicteric, mucous membranes moist Lung: Clear to Auscultation bilaterally, no wheezes/rales/rhonchi Heart: Regular rate, regular rhythm, no murmurs, rubs, or gallops Abdomen: Soft, NT, ND +BS x 4 Extremities: +Spinal dressing c/d/i, drain visualized, no edema Skin: Warm, no rash Results & Data Results & Data Vital Signs (Past 12 Hours) Vital Signs Temp Pulse Pulse Resp BP Pulse Ox O2 Del Method 08/30/23 11:00 36.6 C 72 16 134/81 100 Room Air 08/30/23 07:25 36.6 C 72 16 109/72 97 Room Air Laboratory Results Short CBC 08/30/23 Range/Units 07:42 WBC 6.54 (4.8-10.8) K/ul Hgb 10.0 L (12.0-16.0) g/dl Hct 31.6 L (37.0-47.0) % Plt Count 187 (130-400) K/uL [facility] 08/30/23 07:42 Sodium 136 Potassium 3.9 Chloride 105 Carbon Dioxide 25 BUN 13 Creatinine 0.80 Glucose 127 H Calcium 8.4 L Diagnostic Findings Abdomen/Pelvis CT 08/27/23 17:27 Exam(s): CT ABDOMEN + PELVIS With Contrast IV Amt: 94ML OPTIRAY 320 EXAM: CT Abdomen and Pelvis With Intravenous Contrast CLINICAL HISTORY: Reason for exam: R back infection w/ open drainage. TECHNIQUE: Axial computed tomography images of the abdomen and pelvis with intravenous contrast. CTDI is 28.14 mGy and DLP is 1479.25 mGy-cm. Automated exposure control was utilized for the study. A dose lowering technique was utilized adhering to the principles of ALARA. CONTRAST: Patient received 94ML OPTIRAY 320 of IV contrast COMPARISON: None. FINDINGS: Lung bases: Bilateral lower lobe and lingular atelectasis. Heart: Unremarkable. No significant pericardial effusion. Normal cardiac size. ABDOMEN: Liver: Unremarkable. No mass. Gallbladder and bile ducts: Status post cholecystectomy. No ductal dilation. Pancreas: Unremarkable. No mass. No ductal dilation. Spleen: Unremarkable. No splenomegaly. Adrenals: Unremarkable. No mass. Kidneys and ureters: Unremarkable. No solid mass. No hydronephrosis. Stomach and bowel: Moderate to abundant fecal debris within the colon. No obstruction. No mucosal thickening. PELVIS: Appendix: Distinct appendix not visualized with no inflammatory process to suggest appendicitis. Bladder: Urinary bladder is decompressed. Reproductive: Anteverted uterus . ABDOMEN and PELVIS: Intraperitoneal space: Trace free fluid in the cul-de-sac, nonspecific. No free air. Bones/joints: Posterior fusion from L3-L5. Mild degenerative disease of the lower thoracic spine, bilateral SI joints and hips. There is mild stranding involving the posterior subcutaneous fat at the approximate T10. There are destructive changes involving the spinous process of T10 and posterolateral elements concerning for osteomyelitis. There is questionable small fluid collection identified at the tip of T9 spinous process measuring 5.4 x 1.0 cm concerning for a small abscess. There are inflammatory changes surrounding the soft tissues from spinous process of T8-T10. No acute fracture. No dislocation. Soft tissues: See above. Vasculature: Unremarkable. No abdominal aortic aneurysm. Lymph nodes: Unremarkable. No enlarged lymph nodes. IMPRESSION: 1. Findings most compatible with osteomyelitis involving the T10 level with extension into the posterior elements. Extensive inflammatory process within the soft tissues from spinous process of T8-T10 with suggestion of a small abscess at the tip of the spinous process of T9 vertebra. 2. Possible mild constipation, otherwise no acute process within the abdomen and pelvis be 3. Status post cholecystectomy, remainder of abdominal viscera are unremarkable. Electronically signed by: Ronda Steward MD 08/27/23 20:[address] 08/28/23 08:01 CT SCAN OF THE THORACIC SPINE WITHOUT IV CONTRAST CLINICAL HISTORY: Thoracic back pain. Clinical concern for osteomyelitis. COMPARISON STUDY: Abdominal CT dated 08/27/2023. TECHNIQUE: CT scan of the thoracic spine was performed from the lower cervical spine to the upper lumbar spine. Images are reviewed in the axial, sagittal, and coronal planes. IV contrast was not administered for this examination. A dose lowering technique was utilized adhering to the principles of ALARA. CT DOSE: 1679.48 mGy.cm FINDINGS: The skeletal structures are well mineralized. Vertebral body height and alignment are maintained throughout the thoracic spine. Tiny anterior osteophytes are seen throughout. There is postsurgical change from laminectomy at T10. The transverse processes appear intact. No lytic or blastic lesion is seen. Fusion hardware is noted in the lower cervical spine. Mild multilevel degenerative disc space narrowing is observed. There is no CT evidence of central canal stenosis. There is a pocket of fluid partially visualized in the right lower back with surrounding infiltration and antibiotic implants in place. This may represent the site of a previous intrathecal device. There is also fluid with mild surrounding infiltration and possible antibiotic implants within the soft tissues posterior to the thecal sac at the T10-T11 laminectomy site. No organized collection is seen. No definite bony erosion is seen at this site. The bony defect identified at T10 is likely postsurgical. There is a small tract seen between the inflammatory process at this site and the inflammatory process in the right lower back as seen on axial image #458. This tract also approximates the dermal surface. The paraspinous soft tissues are otherwise normal in appearance. The visualized lung parenchyma is clear. IMPRESSION: 1. There is no evidence of acute fracture or malalignment involving the thoracic spine. 2. Postlaminectomy change is seen at T10, and an intrathecal device has likely been removed. Correlate clinically. 3. There is a pocket of infiltration and fluid identified in the soft tissues of the right lower back which contains antibiotic implants. This likely represents the site of a previously implanted device. A thin tract connects this inflammatory process to the soft tissues posterior to the thecal sac at the T10 laminectomy site where there is also inflammation, trace fluid, and probable antibiotic implants. There is no evidence of drainable fluid collection at this time on this unenhanced CT scan. 4. The sharply marginated bony defect at T10 is likely on a postsurgical basis. Osteomyelitis is considered much less likely. Clinical correlation will be essential. Follow-up as clinically warranted. 5. Additional findings as above. ACT 112: Negative or not required by law. Dictated: 08/28/2023 10:27 AM Transcribed: 08/28/2023 10:55 AM Giovanny [id number] [email or web address] Electronically signed by: Noah Carcamo M.D. 08/28/2023 11:18 AM
[2023-08-30] MEDS: VANCOMYCIN HCL 1,250 MG in SODIUM CHLORIDE 0.9% 250 ML IV SCH (20:30)
[2023-08-30] MEDS: MELATONIN 3 MG TAB PO SCH (20:30)
[2023-08-30] MEDS: ZOLPIDEM TARTRATE 10 MG TAB PO PRN (20:30)
[2023-08-30] MEDS: DIVALPROEX DELAY RELEASE 250 MG TABEC PO SCH (20:32)
[2023-08-30] MEDS: DOCUSATE SODIUM 100 MG CAP PO PRN (20:35)
[2023-08-31] MEDS: oxyCODONE HCL IR 5 MG TAB (IMMEDIATE RELEASE) PO PRN ×2 (00:30→12:29)
[2023-08-31] MEDS: CHECK SCOPOLAMINE PATCH PLACEMENT SCH ×3 (00:31→16:46)
[2023-08-31] MEDS: CEFEPIME 2,000 MG in SYRINGE 0 ML IV SCH ×3 (01:32→17:04)
[2023-08-31] MEDS: LEVOTHYROXINE SODIUM 75 MCG TABLET PO SCH (05:56)
[2023-08-31 07:27] LABS: Hematocrit (blood only) 31.2 % (37.0-47.0); Hemoglobin 9.7 g/dl (12.0-16.0)
[2023-08-31 08:00] LABS: BUN Creatinine Ratio 18.6 (10-20); Calcium 8.5 mg/dl (8.6-10.3); Creatinine Clr Calc Pharmacy 115.4 ml/min; Est GFR (African American) 95.2 ml/min; Est GFR (Non-African American) 82.2 ml/min; Potassium 4.1 mmol/L (3.5-5.1)
[2023-08-31] MEDS ORDERED: VANCOMYCIN LEVEL SCH (08:00)
[2023-08-31] MEDS: QUEtiapine FUMARATE 100 MG TABLET PO SCH (08:20)
[2023-08-31] MEDS: buPROPion XL 150 MG TABCR PO SCH (08:20)
[2023-08-31] MEDS: PANTOprazole 40 MG TAB PO SCH (08:20)
[2023-08-31] MEDS: GABAPENTIN 600 MG TAB PO SCH ×2 (08:20→20:01)
[2023-08-31] MEDS: VENLAFAXINE HCL XR 150 MG CAPXR PO SCH (08:20)
[2023-08-31] MEDS: DIVALPROEX DELAY RELEASE 500 MG TAB PO SCH (08:20)
[2023-08-31] MEDS: PROPRANOLOL HCL 10 MG TAB PO SCH ×2 (08:20→20:01)
[2023-08-31] MEDS: VENLAFAXINE HCL XR 75 MG CAPXR PO SCH (08:20)
[2023-08-31] MEDS: TOPIRAMATE 50 MG TAB PO SCH ×2 (08:21→20:00)
[2023-08-31] MEDS: INSULIN ASPART PER UNIT CHARGE SC SCH ×4 (08:25→21:04)
[2023-08-31] MEDS: LANTUS PER UNIT CHARGE SC SCH (08:25)
--- NOTE | 2023-08-31 09:00 | Pharmacy Report ---
Pharmacy PK ABX Note - Date of Service August 31, 2023 - Assessment and Plan Assessment 43 year old F receiving vancomycin and cefepime for treatment of possible osteomyelitis/paravertebral abscess. * Day #1 of antimicrobial therapy. * HPI significant for spinal cord stimulator implanted in 06/2023 which subsequently became infected and required removal in 07/2023. * Wound cx from back in 07/2023 grew MSSA. Patient discharged on Nafcillin 2 g IV q6h x 6 weeks. * I&D of lumbar flank on 08/29/23 * Labs/Vitals: Afebrile. No leukocytosis. Renal fxn stable. * Micro: lower back culture growing coagulase negative Staphylococcus. Blood cultures from 08/27 show no growth at 48 hours. * Imaging: * 08/27/23 CT A/P: "Findings most compatible with osteomyelitis involving the T10 level with extension into the posterior elements. Extensive inflammatory process within the soft tissues from spinous process of T8-T10 with suggestion of a small abscess at the tip of the spinous process of T9 vertebra." * Infectious diseases consulted Plan Vancomycin * Current regimen: 1250 mg IV every 12 hours * Random level obtained 08/31/23 resulted as 14.8 mcg/mL. This is predicted to achieve target AUC/STEPHANIE of 400-600 mg/L.hr * Predicted AUC at steady state: 488 mg/L.hr * Given osteomyelitis, will change to 1500 mg IV every 12 hours to increase probability of target AUC/STEPHANIE attainment * Repeat random level ordered for: 09/02/23 Cefepime * 2000 mg IV every 8 hours - appropriately dosed, no change Pharmacy will continue to follow and will adjust dose/frequency as necessary. Thank you. Pharmacy has transitioned to AUC monitoring for vancomycin. AUC/STEPHANIE is the preferred PK/PD target and is associated with decreased risk of nephrotoxicity compared to traditional trough targets.
[2023-08-31] MEDS: VANCOMYCIN HCL 1,500 MG in SODIUM CHLORIDE 0.9% 500 ML IV SCH ×2 (09:04→22:12)
--- NOTE | 2023-08-31 09:07 | Pharmacy Report ---
Pharmacy Glycemic Short Note 2 - Date of Service August 31, 2023 - Glycemic Short BSG Results (Last 24 hours): 08/30/23 08/30/23 08/30/23 11:35 16:38 20:22 Glucose POC Glucose 144 H 109 H 176 H 08/31/23 08/31/23 06:47 07:51 Glucose 123 H POC Glucose 131 H OUTPATIENT ANTIDIABETIC REGIMEN: * Metformin 500 mg PO AM * HbA1c: 7.3% (08/28/23) ASSESSMENT: 08/31: * BSGs reasonably well-controlled yesterday, but did trend up at HS and mildly elevated fasting BSG this morning * Given elevated fasting, will initiate low-dose basal insulin today * Will consider slightly tightening carb ratio today pending lunch BSG 08/30: * Patient is post op day 1 today s/p I&D of R flank infection/ spinal cord battery pack site. Receiving IV antibiotics. * BSGs yesterday were [phone] mg/dl. * She received total 13 units of bolus insulin and no basal. * Since BSGs are well controlled, continue same parameters for Novolog. No basal insulin ordered. 08/28: * 43 yo F admitted on 08/27/23 secondary to possible vertebral osteomyelitis/abscess. Pharmacy has been consulted to assist with inpatient glycemic management. Patient is a Type 2 diabetic as an outpatient. Please refer to outpatient regimen and most recent HbA1c above. * BSGs have been at or near goal range since arrival: 134-159-172 mg/dL. * Fasting BSG 129 mg/dL, controlled. Continue to hold basal insulin. Possibility of surgical intervention. * Ordered and tolerating a regular diet so far. Continue with bolus insulin only for now. May need to transition to T2DM diet if steroids ordered or BSGs elevated. Goal BSG < 180 mg/dL to prevent spread/worsening of infection. PLAN FOR INPATIENT GLYCEMIC CONTROL: * Hold outpatient oral diabetes medications * Basal insulin * Lantus 5 units SC daily * Bolus insulin * NovoLog per scale ACHS or Q6hrs while NPO * Goal Range: Low 110 mg/dL - High 140 mg/dL * Correction Factor: 30 mg/dL/unit * Nutritional / Prandial insulin per carb ratio of 1 unit per 9 grams CHO consumed
--- NOTE | 2023-08-31 13:31 | Orthopedic Progress Note ---
Date of Service August 31, 2023 Assessment & Plan (1) Infection of spinal cord stimulator: Plan: At this time we are awaiting final recommendations regarding antibiotic treatment. We will maintain the JUAN JOSE drain another day. Admission and Anticipated Discharge Date Admission Date: August 27, 2023 Subjective Patient's back pain is improved. Physical Exam Physical Exam: Patient is neurologically intact. Bed at this time. Results & Data Vital Signs (Past 12 Hours) Vital Signs Temp Pulse Resp BP Pulse Ox O2 Del Method 08/31/23 08:00 Room Air 08/31/23 07:11 37.0 C 75 18 110/74 97 Room Air
--- NOTE | 2023-08-31 14:38 | Hospitalist Progress Note ---
Date of Service August 31, 2023 Assessment & Plan (1) Vertebral osteomyelitis: Plan: Acute osteomyelitis of thoracic spine Infection of spinal cord stimulator Postlaminectomy syndrome with chronic lumbar radiculopathy S/spinal cord stimulator placement on 07/24/2023 S/P I&D and evacuation of spinal cord stimulator and battery pack on 08/07/2023 --Thoracic CT:There is no evidence of acute fracture or malalignment involving the thoracic spine. Postlaminectomy change is seen at T10, and an intrathecal device has likely been removed. Correlate clinically. There is a pocket of infiltration and fluid identified in the soft tissues of the right lower back which contains antibiotic implants. This likely represents the site of a previously implanted device. A thin tract connects this inflammatory process to the soft tissues posterior to the thecal sac at the T10 laminectomy site where there is also inflammation, trace fluid, and probable antibiotic implants. There is no evidence of drainable fluid collection at this time on this unenhanced CT scan. The sharply marginated bony defect at T10 is likely on a postsurgical basis. Osteomyelitis is considered much less likely. Clinical correlation will be essential. Follow-up as clinically warranted. Orthopedics on board --Previous wound cultures grew MSSA: Failed Nafcillin treatment --Blood culture from 08/27 - No growth S/p Irrigation debridement right flank infection at the site of the previous battery pocket for the spinal cord stimulator 08/29 Continue vancomycin, cefepime for now Appreciate ID input anticipate minimum 6-8 week duration of antibiotic therapy, further recs to follow PICC in place, CM has [facility] set up, patient comfortable with IV abx at home from previous treatment Awaiting final intraoperative culture results DM II H/O diabetes mellitus HbA1c 7.3 Hold metformin Continue insulin while hospitalized Monitor BGs Will need adjustment of medications upon discharge Hypothyroidism Continue levothyroxine GERD Continue pantoprazole Morbid obesity BMI 46 H/O Traumatic brain injury/functional seizures Mood disorder Continue home medications Chronic anemia Hb at baseline Monitor CBC DVT Px: As per Ortho SCDs Encourage to Ambulate Pt was seen and examined in collaboration with Dr. Jimenez, please see addendum Admission and Anticipated Discharge Date Admission Date: August 27, 2023 Supervising Physician Co-Signing Physician Notes Pt seen and examined by me, care coordinated w/ Toño Nixon PA-C, pls refer to her note above for further detail. Pt is s/p I&D w/ . She is doing well and has no complaints. No fever, chills, chest pain, shortness of breath. No abd. pain, n/v. Sitting up in bed in NAD. Alert oriented answering appropriately. Lung sound CTAB, heart sounds regular, abdomen soft nontender nondistended, + bowel sounds. Pt is moving extremities. ID consulted - awaiting cultures from OR for final recommendations. MD Tony Subjective Seen and examined in 361-1. No acute changes overnight. Feeling well and not in pain at rest. Tolerating diet without issue. No F/C, lightheadedness, CP, SOB, abd pain, dysuria, diarrhea or constipation. Understands we are awaiting cultures prior to DC. Review of Systems Review of Systems: At least ten systems reviewed and negative except as noted in the HPI. Physical Exam Physical Exam: Gen: WD/WN, NAD, sitting up in bed on the phone, A&Ox3 HEENT: Normocephalic, atraumatic, conjunctivae moist, sclerae anicteric, mucous membranes moist Lung: Clear to Auscultation bilaterally, no wheezes/rales/rhonchi Heart: Regular rate, regular rhythm, no murmurs, rubs, or gallops Abdomen: Soft, NT, ND +BS x 4 Extremities: +Spinal dressing c/d/i, drain visualized, no edema Skin: Warm, no rash Results & Data Results & Data Vital Signs (Past 12 Hours) Vital Signs Temp Pulse Resp BP Pulse Ox O2 Del Method 08/31/23 08:00 Room Air 08/31/23 07:11 37.0 C 75 18 110/74 97 Room Air Laboratory Results Short CBC 08/31/23 Range/Units 06:47 Hgb 9.7 L (12.0-16.0) g/dl Hct 31.2 L (37.0-47.0) % BMP 08/31/23 06:47 Sodium 136 Potassium 4.1 Chloride 105 Carbon Dioxide 24 BUN 16 Creatinine 0.86 Glucose 123 H Calcium 8.5 L Diagnostic Findings Abdomen/Pelvis CT 08/27/23 17:27 Exam(s): CT ABDOMEN + PELVIS With Contrast IV Amt: 94ML OPTIRAY 320 EXAM: CT Abdomen and Pelvis With Intravenous Contrast CLINICAL HISTORY: Reason for exam: R back infection w/ open drainage. TECHNIQUE: Axial computed tomography images of the abdomen and pelvis with intravenous contrast. CTDI is 28.14 mGy and DLP is 1479.25 mGy-cm. Automated exposure control was utilized for the study. A dose lowering technique was utilized adhering to the principles of ALARA. CONTRAST: Patient received 94ML OPTIRAY 320 of IV contrast COMPARISON: None. FINDINGS: Lung bases: Bilateral lower lobe and lingular atelectasis. Heart: Unremarkable. No significant pericardial effusion. Normal cardiac size. ABDOMEN: Liver: Unremarkable. No mass. Gallbladder and bile ducts: Status post cholecystectomy. No ductal dilation. Pancreas: Unremarkable. No mass. No ductal dilation. Spleen: Unremarkable. No splenomegaly. Adrenals: Unremarkable. No mass. Kidneys and ureters: Unremarkable. No solid mass. No hydronephrosis. Stomach and bowel: Moderate to abundant fecal debris within the colon. No obstruction. No mucosal thickening. PELVIS: Appendix: Distinct appendix not visualized with no inflammatory process to suggest appendicitis. Bladder: Urinary bladder is decompressed. Reproductive: Anteverted uterus . ABDOMEN and PELVIS: Intraperitoneal space: Trace free fluid in the cul-de-sac, nonspecific. No free air. Bones/joints: Posterior fusion from L3-L5. Mild degenerative disease of the lower thoracic spine, bilateral SI joints and hips. There is mild stranding involving the posterior subcutaneous fat at the approximate T10. There are destructive changes involving the spinous process of T10 and posterolateral elements concerning for osteomyelitis. There is questionable small fluid collection identified at the tip of T9 spinous process measuring 5.4 x 1.0 cm concerning for a small abscess. There are inflammatory changes surrounding the soft tissues from spinous process of T8-T10. No acute fracture. No dislocation. Soft tissues: See above. Vasculature: Unremarkable. No abdominal aortic aneurysm. Lymph nodes: Unremarkable. No enlarged lymph nodes. IMPRESSION: 1. Findings most compatible with osteomyelitis involving the T10 level with extension into the posterior elements. Extensive inflammatory process within the soft tissues from spinous process of T8-T10 with suggestion of a small abscess at the tip of the spinous process of T9 vertebra. 2. Possible mild constipation, otherwise no acute process within the abdomen and pelvis be 3. Status post cholecystectomy, remainder of abdominal viscera are unremarkable. Electronically signed by: Ronda Steward MD 08/27/23 20:[address] 08/28/23 08:01 CT SCAN OF THE THORACIC SPINE WITHOUT IV CONTRAST CLINICAL HISTORY: Thoracic back pain. Clinical concern for osteomyelitis. COMPARISON STUDY: Abdominal CT dated 08/27/2023. TECHNIQUE: CT scan of the thoracic spine was performed from the lower cervical spine to the upper lumbar spine. Images are reviewed in the axial, sagittal, and coronal planes. IV contrast was not administered for this examination. A dose lowering technique was utilized adhering to the principles of ALARA. CT DOSE: 1679.48 mGy.cm FINDINGS: The skeletal structures are well mineralized. Vertebral body height and alignment are maintained throughout the thoracic spine. Tiny anterior osteophytes are seen throughout. There is postsurgical change from laminectomy at T10. The transverse processes appear intact. No lytic or blastic lesion is seen. Fusion hardware is noted in the lower cervical spine. Mild multilevel degenerative disc space narrowing is observed. There is no CT evidence of central canal stenosis. There is a pocket of fluid partially visualized in the right lower back with surrounding infiltration and antibiotic implants in place. This may represent the site of a previous intrathecal device. There is also fluid with mild surrounding infiltration and possible antibiotic implants within the soft tissues posterior to the thecal sac at the T10-T11 laminectomy site. No organized collection is seen. No definite bony erosion is seen at this site. The bony defect identified at T10 is likely postsurgical. There is a small tract seen between the inflammatory process at this site and the inflammatory process in the right lower back as seen on axial image #458. This tract also approximates the dermal surface. The paraspinous soft tissues are otherwise normal in appearance. The visualized lung parenchyma is clear. IMPRESSION: 1. There is no evidence of acute fracture or malalignment involving the thoracic spine. 2. Postlaminectomy change is seen at T10, and an intrathecal device has likely been removed. Correlate clinically. 3. There is a pocket of infiltration and fluid identified in the soft tissues of the right lower back which contains antibiotic implants. This likely represents the site of a previously implanted device. A thin tract connects this inflammatory process to the soft tissues posterior to the thecal sac at the T10 laminectomy site where there is also inflammation, trace fluid, and probable antibiotic implants. There is no evidence of drainable fluid collection at this time on this unenhanced CT scan. 4. The sharply marginated bony defect at T10 is likely on a postsurgical basis. Osteomyelitis is considered much less likely. Clinical correlation will be essential. Follow-up as clinically warranted. 5. Additional findings as above. ACT 112: Negative or not required by law. Dictated: 08/28/2023 10:27 AM Transcribed: 08/28/2023 10:55 AM Giovanny [id number] [email or web address] Electronically signed by: Noah Carcamo M.D. 08/28/2023 11:18 AM
[2023-08-31] MEDS: ZOLPIDEM TARTRATE 10 MG TAB PO PRN (20:00)
[2023-08-31] MEDS: MELATONIN 3 MG TAB PO SCH (20:00)
[2023-08-31] MEDS: DOCUSATE SODIUM 100 MG CAP PO PRN (20:00)
[2023-08-31] MEDS: DIVALPROEX DELAY RELEASE 250 MG TABEC PO SCH (20:02)
[2023-09-01] MEDS: oxyCODONE HCL IR 5 MG TAB (IMMEDIATE RELEASE) PO PRN ×2 (00:47→13:14)
[2023-09-01] MEDS: CEFEPIME 2,000 MG in SYRINGE 0 ML IV SCH ×3 (02:03→17:20)
[2023-09-01] MEDS: LEVOTHYROXINE SODIUM 75 MCG TABLET PO SCH (05:43)
[2023-09-01 08:21] LABS: Hematocrit (blood only) 31.5 % (37.0-47.0); Hemoglobin 9.7 g/dl (12.0-16.0); Mean Corpuscular Hemoglobin 27.6 pg (25.0-34.0); Mean Corpuscular Hgb Conc 30.8 g/dL (32.0-36.0); Mean Corpuscular Volume 89.5 fL (80.0-100.0); Mean Platelet Volume 9.2 fL (9.4-12.4); Platelet Count 200 K/uL (130-400); RDW Coefficient of Variation 15.9 % (11.5-14.5); RDW Standard Deviation 51.8 fL (36.4-46.3); Red Blood Count 3.52 M/uL (4.20-5.40); White Blood Count 7.04 K/ul (4.8-10.8)
--- NOTE | 2023-09-01 08:28 | Hospitalist Progress Note ---
Date of Service September 01, 2023 Assessment & Plan (1) Vertebral osteomyelitis: Plan: Acute osteomyelitis of thoracic spine Infection of spinal cord stimulator Postlaminectomy syndrome with chronic lumbar radiculopathy S/spinal cord s timulator placement on 07/24/2023 S/P I&D and evacuation of spinal cord stimulator and battery pack on 08/07/2023 --Thoracic CT:There is no evidence of acute fracture or malalignment involving the thoracic spine. Postlaminectomy change is seen at T10, and an intrathecal device has likely been removed. Correlate clinically. There is a pocket of infiltration and fluid identified in the soft tissues of the right lower back which contains antibiotic implants. This likely represents the site of a previously implanted device. A thin tract connects this inflammatory process to the soft tissues posterior to the thecal sac at the T10 laminectomy site where there is also inflammation, trace fluid, and probable antibiotic implants. There is no evidence of drainable fluid collection at this time on this unenhanced CT scan. The sharply marginated bony defect at T10 is likely on a postsurgical basis. Osteomyelitis is considered much less likely. Clinical correlation will be essential. Follow-up as clinically warranted. Orthopedics on board --Previous wound cultures grew MSSA: Failed Nafcillin treatment --Blood culture from 08/27 - No growth S/p Irrigation debridement right flank infection at the site of the previous battery pocket for the spinal cord stimulator 08/29 Continue vancomycin, cefepime for now Appreciate ID input anticipate minimum 6-8 week duration of antibiotic therapy, further recs to follow PICC in place, CM has [facility] set up, patient comfortable with IV abx at home from previous treatment Awaiting final intraoperative culture results DM II H/O diabetes mellitus HbA1c 7.3 Hold metformin Continue insulin while hospitalized Monitor BGs Will need adjustment of medications upon discharge Hypothyroidism Continue levothyroxine GERD Continue pantoprazole Morbid obesity BMI 46 H/O Traumatic brain injury/functional seizures Mood disorder Continue home medications Chronic anemia Hb at baseline Monitor CBC DVT Px: As per Ortho SCDs Encourage to Ambulate Admission and Anticipated Discharge Date Admission Date: August 27, 2023 Subjective Seen and examined in 361-1. No acute changes overnight. Feeling well and not in pain at rest. Tolerating diet without issue. No F/C, lightheadedness, CP, SOB, abd pain, dysuria, diarrhea or constipation. Understands we are awaiting cultures / final recommendations from ID prior to discharge. Review of Systems Review of Systems: All systems reviewed & are unremarkable except as noted in Subjective Physical Exam Physical Exam: General: obese young F sitting up in bed in NAD, sitting up in bed in NAD, A&Ox3 HEENT: Normocephalic, atraumatic, conjunctivae moist, sclerae anicteric, mucous membranes moist Lung: Clear to Auscultation bilaterally, no wheezes/rales/rhonchi Heart: Regular rate, regular rhythm, no murmurs, rubs, or gallops Abdomen: Soft, NT, ND +BS x 4 Extremities: +Spinal dressing c/d/i, drain visualized, no edema Skin: Warm, no rash Results & Data Results & Data Vital Signs (Past 12 Hours) Vital Signs Temp Pulse Resp BP Pulse Ox O2 Del Method 09/01/23 07:20 36.6 C 76 18 106/71 97 Room Air Laboratory Results 09/01/23 09/01/23 09/01/23 Range/Units 11:57 07:33 07:29 WBC 7.04 (4.8-10.8) K/ul RBC 3.52 L (4.20-5.40) M/uL Hgb 9.7 L (12.0-16.0) g/dl Hct 31.5 L (37.0-47.0) % MCV 89.5 (80.0-100.0) fL MCH 27.6 (25.0-34.0) pg MCHC 30.8 L (32.0-36.0) g/dL RDW Std Deviation 51.8 H (36.4-46.3) fL RDW Coeff of Ursula 15.9 H (11.5-14.5) % Plt Count 200 (130-400) K/uL MPV 9.2 L (9.4-12.4) fL Sodium 136 (136-145) mmol/L Potassium 4.1 (3.5-5.1) mmol/L Chloride 106 (98-107) mmol/L Carbon Dioxide 24 (21-32) mmol/L Anion Gap 6 (3-11) BUN 15 (6-23) mg/dl Creatinine 0.80 (0.6-1.2) mg/dl Est Cr Clr Drug Dosing 124.1 ml/min Est GFR ( Amer) 103.9 ml/min Est GFR (Non-Af Amer) 89.7 ml/min BUN/Creatinine Ratio 18.8 (10-20) Glucose 132 H (70-99(Fasting)) mg/dl POC Glucose 138 H 138 H (70-99) mg/dl Calcium 8.5 L (8.6-10.3) mg/dl 08/31/23 08/31/23 Range/Units 20:51 16:37 WBC (4.8-10.8) K/ul RBC (4.20-5.40) M/uL Hgb (12.0-16.0) g/dl Hct (37.0-47.0) % MCV (80.0-100.0) fL MCH (25.0-34.0) pg MCHC (32.0-36.0) g/dL RDW Std Deviation (36.4-46.3) fL RDW Coeff of Ursula (11.5-14.5) % Plt Count (130-400) K/uL MPV (9.4-12.4) fL Sodium (136-145) mmol/L Potassium (3.5-5.1) mmol/L Chloride (98-107) mmol/L Carbon Dioxide (21-32) mmol/L Anion Gap (3-11) BUN (6-23) mg/dl Creatinine (0.6-1.2) mg/dl Est Cr Clr Drug Dosing ml/min Est GFR ( Amer) ml/min Est GFR (Non-Af Amer) ml/min BUN/Creatinine Ratio (10-20) Glucose (70-99(Fasting)) mg/dl POC Glucose 163 H 96 (70-99) mg/dl Calcium (8.6-10.3) mg/dl Medications Administered Current Inpatient Medications Acetaminophen (Acetaminophen 500 Mg Tab) 1,000 mg PO Q8H PRN PRN Reason: MILD Pain Scale 1,2,3 & Pre PT Stop: 09/26/23 22:50 Last Admin: 08/29/23 21:41 Dose: 1,000 mg Bupropion HCl (Bupropion Xl 150 Mg Tabcr) 150 mg PO QAM [facility] Stop: 09/27/23 08:59 Last Admin: 08/31/23 08:20 Dose: 150 mg Dextrose (Dextrose 50% 50 Ml Syringe) 25 - 50 ml IV UD PRN; Protocol PRN Reason: Hypoglycemia Protocol Stop: 09/27/23 00:29 Divalproex Sodium (Divalproex Delay Release 250 Mg Tabec) 250 mg PO HS [facility] Stop: 09/27/23 20:59 Last Admin: 08/31/23 20:02 Dose: 250 mg Divalproex Sodium (Divalproex Delay Release 500 Mg Tab) 500 mg PO QAM [facility] Stop: 09/27/23 08:59 Last Admin: 08/31/23 08:20 Dose: 500 mg Docusate Sodium (Docusate Sodium 100 Mg Cap) 100 mg PO BID PRN PRN Reason: Constipation Stop: 09/27/23 09:59 Last Admin: 08/31/23 20:00 Dose: 100 mg Gabapentin (Gabapentin 600 Mg Tab) 600 mg PO BID [facility] Stop: 09/27/23 08:59 Last Admin: 08/31/23 20:01 Dose: 600 mg Glucagon (Glucagon For Inj 1 Mg Vial) 1 mg IM UD PRN; Protocol PRN Reason: Hypoglycemia Protocol Stop: 09/27/23 00:29 Glucose (Glucose 40% Gel 15 Gm Tube) 15 - 30 gm PO UD PRN; Protocol PRN Reason: Hypoglycemia Protocol Stop: 09/27/23 00:29 Glucose (Glucose 10 Tab/Tube) 4 - 8 tab PO UD PRN; Protocol PRN Reason: Hypoglycemia Protocol Stop: 09/27/23 00:29 Heparin Sodium (Beef Lung) (Heparin 10 Unit/Ml 5 Ml Flush) 5 ml FLUSH PRN PRN PRN Reason: Flush Stop: 09/27/23 16:29 Last Admin: 09/01/23 00:59 Dose: 5 ml Promethazine HCl 12.5 mg/ (Sodium Chloride) 50.5 mls @ 202 mls/hr IV Q6H PRN PRN Reason: Nausea &/or Vomiting Stop: 09/26/23 22:50 Cefepime HCl 2,000 mg/ Syringe 20 mls @ 5 mls/min IV Q8H [facility]; Protocol Stop: 10/09/23 01:14 Last Admin: 09/01/23 02:03 Dose: 5 mls/min Vancomycin HCl 1,500 mg/ (Sodium Chloride) 530 mls @ 200 mls/hr IV Q12 [facility] Stop: 10/12/23 08:14 Last Infusion: 09/01/23 00:59 Dose: Infused Insulin Aspart (Insulin Aspart Per Unit Charge) 0 units SC ACHS [facility] Stop: 09/28/23 17:29 Last Admin: 08/31/23 21:04 Dose: 3 units Insulin Glargine (Lantus Per Unit Charge) 5 units SC DAILY [facility] Stop: 09/30/23 08:59 Last Admin: 08/31/23 08:25 Dose: 5 units Levothyroxine Sodium (Levothyroxine Sodium 75 Mcg Tablet) 75 mcg PO DAILYBB [facility] Stop: 09/27/23 06:29 Last Admin: 09/01/23 05:43 Dose: 75 mcg Lorazepam (Lorazepam 0.5 Mg Tab) 0.5 mg PO Q8H PRN PRN Reason: sedation/anxiety Stop: 09/26/23 22:50 Melatonin (Melatonin 3 Mg Tab) 3 mg PO HS [facility] Stop: 09/27/23 00:14 Last Admin: 08/31/23 20:00 Dose: 3 mg Metoclopramide HCl (Metoclopramide Hcl Inj 5 Mg/Ml 2 Ml Vial) 10 mg IV Q6H PRN PRN Reason: Nausea &/or Vomiting Stop: 09/26/23 22:50 Miscellaneous (Carbohydrates For Hypoglycemia ) 15 - 30 gm PO UD PRN PRN Reason: Hypoglycemia Treatment Stop: 09/27/23 00:29 Miscellaneous Information (Vancomycin Consult Active) 1 each N/A UD PRN PRN Reason: Consult Stop: 09/26/23 20:45 Miscellaneous Information (Pharmacy Glycemic Mgmt Consult) 1 each N/A UD PRN PRN Reason: Consult Stop: 09/26/23 22:50 Naloxone HCl (Naloxone Hcl 0.4 Mg/1 Ml Vial/Carp) 0.1 mg IV Q5M PRN PRN Reason: Oversedation/respiratory dep Stop: 09/26/23 22:50 Ondansetron HCl (Ondansetron Inj 2 Mg/Ml 2 Ml Vial) 4 mg IV Q6H PRN PRN Reason: Nausea &/or Vomiting Stop: 09/26/23 22:50 Ondansetron HCl (Ondansetron 4 Mg Od Tab) 4 mg PO Q6H PRN PRN Reason: Nausea Stop: 09/26/23 22:50 Oxycodone HCl (Oxycodone Hcl Ir 5 Mg Tab (Immediate Release)) 5 - 10 mg PO Q4H PRN PRN Reason: mod to severe pain Stop: 09/10/23 22:50 Last Admin: 09/01/23 00:47 Dose: 10 mg Pantoprazole Sodium (Pantoprazole 40 Mg Tab) 40 mg PO QAM [facility] Stop: 09/27/23 08:59 Last Admin: 08/31/23 08:20 Dose: 40 mg Polyethylene Glycol (Polyethylene (Miralax) 17 Gm Pack) 17 gm PO DAILY PRN PRN Reason: Constipation Stop: 09/27/23 09:46 Propranolol HCl (Propranolol Hcl 10 Mg Tab) 10 mg PO BID [facility] Stop: 09/27/23 00:14 Last Admin: 08/31/23 20:01 Dose: 10 mg Quetiapine Fumarate (Quetiapine Fumarate 100 Mg Tablet) 100 mg PO QAM [facility] Stop: 09/27/23 08:59 Last Admin: 08/31/23 08:20 Dose: 100 mg Scopolamine (Scopolamine 1 Mg Tdsy) 1 mg TD Q72H [facility] Stop: 09/28/23 14:29 Last Admin: 08/29/23 14:38 Dose: Not Given Topiramate (Topiramate 50 Mg Tab) 150 mg PO BID [facility] Stop: 09/27/23 00:09 Last Admin: 08/31/23 20:00 Dose: 150 mg Venlafaxine HCl (Venlafaxine Hcl Xr 75 Mg Capxr) 75 mg PO QAM [facility] Stop: 09/27/23 08:59 Last Admin: 08/31/23 08:20 Dose: 75 mg Venlafaxine HCl (Venlafaxine Hcl Xr 150 Mg Capxr) 150 mg PO QAM [facility] Stop: 09/27/23 08:59 Last Admin: 08/31/23 08:20 Dose: 150 mg Zolpidem Tartrate (Zolpidem Tartrate 10 Mg Tab) 10 mg PO HS PRN PRN Reason: Sleep Stop: 09/27/23 00:14 Last Admin: 08/31/23 20:00 Dose: 10 mg
[2023-09-01 08:45] LABS: BUN Creatinine Ratio 18.8 (10-20); Calcium 8.5 mg/dl (8.6-10.3); Creatinine Clr Calc Pharmacy 124.1 ml/min; Est GFR (African American) 103.9 ml/min; Est GFR (Non-African American) 89.7 ml/min; Potassium 4.1 mmol/L (3.5-5.1)
--- NOTE | 2023-09-01 09:06 | Orthopedic Progress Note ---
Date of Service September 01, 2023 Assessment & Plan (1) MSSA (methicillin susceptible Staphylococcus aureus) infection: Plan: At this time we may discontinue her drain and change her dressing today. We are awaiting final recommendations from infectious disease regarding home medications.. Hopefully discharge home soon. Admission and Anticipated Discharge Date Admission Date: August 27, 2023 Subjective Patient is pain is well controlled. She is ambulating about the room without difficulty. Physical Exam Physical Exam: Patient is comfortably discussing the testing. Results & Data Vital Signs (Past 12 Hours) Vital Signs Temp Pulse Resp BP Pulse Ox O2 Del Method 09/01/23 07:20 36.6 C 76 18 106/71 97 Room Air
[2023-09-01] MEDS: TOPIRAMATE 50 MG TAB PO SCH ×2 (09:18→21:11)
[2023-09-01] MEDS: PROPRANOLOL HCL 10 MG TAB PO SCH ×2 (09:18→21:12)
[2023-09-01] MEDS: GABAPENTIN 600 MG TAB PO SCH ×2 (09:18→21:11)
[2023-09-01] MEDS: VENLAFAXINE HCL XR 150 MG CAPXR PO SCH (09:19)
[2023-09-01] MEDS: VENLAFAXINE HCL XR 75 MG CAPXR PO SCH (09:19)
[2023-09-01] MEDS: QUEtiapine FUMARATE 100 MG TABLET PO SCH (09:19)
[2023-09-01] MEDS: DIVALPROEX DELAY RELEASE 500 MG TAB PO SCH (09:19)
[2023-09-01] MEDS: PANTOprazole 40 MG TAB PO SCH (09:19)
[2023-09-01] MEDS: buPROPion XL 150 MG TABCR PO SCH (09:19)
[2023-09-01] MEDS: INSULIN ASPART PER UNIT CHARGE SC SCH ×4 (09:30→21:10)
[2023-09-01] MEDS: LANTUS PER UNIT CHARGE SC SCH (09:30)
[2023-09-01] MEDS: VANCOMYCIN HCL 1,500 MG in SODIUM CHLORIDE 0.9% 500 ML IV SCH ×2 (09:30→21:12)
[2023-09-01] MEDS: DOCUSATE SODIUM 100 MG CAP PO PRN (21:11)
[2023-09-01] MEDS: MELATONIN 3 MG TAB PO SCH (21:11)
[2023-09-01] MEDS: ZOLPIDEM TARTRATE 10 MG TAB PO PRN (21:11)
[2023-09-01] MEDS: DIVALPROEX DELAY RELEASE 250 MG TABEC PO SCH (21:11)
[2023-09-01] MEDS ORDERED: ALTEPLASE, RECOMBINANT 1 MG/ML 2ML VIAL INSTIL ONE (23:09)
[2023-09-02] MEDS: oxyCODONE HCL IR 5 MG TAB (IMMEDIATE RELEASE) PO PRN ×2 (01:48→21:15)
[2023-09-02] MEDS: CEFEPIME 2,000 MG in SYRINGE 0 ML IV SCH ×3 (02:05→17:03)
[2023-09-02] MEDS: LEVOTHYROXINE SODIUM 75 MCG TABLET PO SCH (05:51)
[2023-09-02 07:21] LABS: Hematocrit (blood only) 30.8 % (37.0-47.0); Hemoglobin 9.5 g/dl (12.0-16.0); Mean Corpuscular Hemoglobin 27.2 pg (25.0-34.0); Mean Corpuscular Hgb Conc 30.8 g/dL (32.0-36.0); Mean Corpuscular Volume 88.3 fL (80.0-100.0); Mean Platelet Volume 9.4 fL (9.4-12.4); Platelet Count 199 K/uL (130-400); Red Blood Count 3.49 M/uL (4.20-5.40)
[2023-09-02 07:40] LABS: BUN Creatinine Ratio 16.2 (10-20); Calcium 8.7 mg/dl (8.6-10.3); Creatinine Clr Calc Pharmacy 134.1 ml/min; Est GFR (African American) 114.2 ml/min; Est GFR (Non-African American) 98.5 ml/min; Potassium 4.1 mmol/L (3.5-5.1)
[2023-09-02] MEDS: LANTUS PER UNIT CHARGE SC SCH (08:19)
[2023-09-02] MEDS: INSULIN ASPART PER UNIT CHARGE SC SCH ×4 (08:20→21:29)
[2023-09-02] MEDS: VENLAFAXINE HCL XR 150 MG CAPXR PO SCH (08:21)
[2023-09-02] MEDS: TOPIRAMATE 50 MG TAB PO SCH ×2 (08:21→21:11)
[2023-09-02] MEDS: GABAPENTIN 600 MG TAB PO SCH ×2 (08:21→21:11)
[2023-09-02] MEDS: QUEtiapine FUMARATE 100 MG TABLET PO SCH (08:22)
[2023-09-02] MEDS: VENLAFAXINE HCL XR 75 MG CAPXR PO SCH (08:22)
[2023-09-02] MEDS: buPROPion XL 150 MG TABCR PO SCH (08:22)
[2023-09-02] MEDS: DIVALPROEX DELAY RELEASE 500 MG TAB PO SCH (08:22)
[2023-09-02] MEDS: PROPRANOLOL HCL 10 MG TAB PO SCH ×2 (08:23→21:12)
[2023-09-02] MEDS: PANTOprazole 40 MG TAB PO SCH (08:23)
[2023-09-02] MEDS ORDERED: VANCOMYCIN LEVEL ONE (08:30)
--- NOTE | 2023-09-02 08:34 | Hospitalist Progress Note ---
Date of Service September 02, 2023 Assessment & Plan (1) Vertebral osteomyelitis: Plan: Acute osteomyelitis of thoracic spine Infection of spinal cord stimulator Postlaminectomy syndrome with chronic lumbar radiculopathy S/spinal cord s timulator placement on 07/24/2023 S/P I&D and evacuation of spinal cord stimulator and battery pack on 08/07/2023 --Thoracic CT:There is no evidence of acute fracture or malalignment involving the thoracic spine. Postlaminectomy change is seen at T10, and an intrathecal device has likely been removed. Correlate clinically. There is a pocket of infiltration and fluid identified in the soft tissues of the right lower back which contains antibiotic implants. This likely represents the site of a previously implanted device. A thin tract connects this inflammatory process to the soft tissues posterior to the thecal sac at the T10 laminectomy site where there is also inflammation, trace fluid, and probable antibiotic implants. There is no evidence of drainable fluid collection at this time on this unenhanced CT scan. The sharply marginated bony defect at T10 is likely on a postsurgical basis. Osteomyelitis is considered much less likely. Clinical correlation will be essential. Follow-up as clinically warranted. Orthopedics on board --Previous wound cultures grew MSSA: Failed Nafcillin treatment --Blood culture from 08/27 - No growth S/p Irrigation debridement right flank infection at the site of the previous battery pocket for the spinal cord stimulator 08/29 Continue vancomycin, cefepime for now Appreciate ID input anticipate minimum 6-8 week duration of antibiotic therapy, further recs to follow PICC in place, CM has [facility] set up, patient comfortable with IV abx at home from previous treatment Awaiting final intraoperative culture results / Final ID recommendations DM II H/O diabetes mellitus HbA1c 7.3 Hold metformin Continue insulin while hospitalized Monitor BGs Will need adjustment of medications upon discharge Hypothyroidism Continue levothyroxine GERD Continue pantoprazole Morbid obesity BMI 46 H/O Traumatic brain injury/functional seizures Mood disorder Continue home medications Chronic anemia Hb at baseline Monitor CBC DVT Px: As per Ortho SCDs Encourage to Ambulate Admission and Anticipated Discharge Date Admission Date: August 27, 2023 Subjective Seen and examined in 361-1. No acute changes overnight. In NAD Tolerating diet without issue. No F/C, lightheadedness, CP, SOB, abd pain, dysuria, diarrhea or constipation. Understands we are awaiting cultures / final recommendations from ID prior to discharge. Review of Systems Review of Systems: All systems reviewed & are unremarkable except as noted in Subjective Physical Exam Physical Exam: General: obese young F sitting up in bed in NAD, sitting up in bed in NAD, A&Ox3 HEENT: Normocephalic, atraumatic, conjunctivae moist, sclerae anicteric, mucous membranes moist Lung: Clear to Auscultation bilaterally, no wheezes/rales/rhonchi Heart: Regular rate, regular rhythm, no murmurs, rubs, or gallops Abdomen: Soft, NT, ND +BS x 4 Extremities: +Spinal dressing c/d/i, drain now removed, no edema or erythema Skin: Warm, no rash Results & Data Results & Data Vital Signs (Past 12 Hours) Vital Signs Temp Pulse Resp BP Pulse Ox O2 Del Method 09/02/23 07:55 36.5 C 73 16 116/73 97 Room Air Laboratory Results 09/02/23 09/02/23 09/01/23 Range/Units 07:47 07:02 20:28 WBC 7.20 (4.8-10.8) K/ul RBC 3.49 L (4.20-5.40) M/uL Hgb 9.5 L (12.0-16.0) g/dl Hct 30.8 L (37.0-47.0) % MCV 88.3 (80.0-100.0) fL MCH 27.2 (25.0-34.0) pg MCHC 30.8 L (32.0-36.0) g/dL RDW Std Deviation 51.0 H (36.4-46.3) fL RDW Coeff of Ursula 16.0 H (11.5-14.5) % Plt Count 199 (130-400) K/uL MPV 9.4 (9.4-12.4) fL Sodium 136 (136-145) mmol/L Potassium 4.1 (3.5-5.1) mmol/L Chloride 107 (98-107) mmol/L Carbon Dioxide 24 (21-32) mmol/L Anion Gap 5 (3-11) BUN 12 (6-23) mg/dl Creatinine 0.74 (0.6-1.2) mg/dl Est Cr Clr Drug Dosing 134.1 ml/min Est GFR ( Amer) 114.2 ml/min Est GFR (Non-Af Amer) 98.5 ml/min BUN/Creatinine Ratio 16.2 (10-20) Glucose 129 H (70-99(Fasting)) mg/dl POC Glucose 125 H 147 H (70-99) mg/dl Calcium 8.7 (8.6-10.3) mg/dl Random Vancomycin 16.9 (10-20) mcg/ml 09/01/23 09/01/23 09/01/23 Range/Units 16:26 11:57 07:33 WBC (4.8-10.8) K/ul RBC (4.20-5.40) M/uL Hgb (12.0-16.0) g/dl Hct (37.0-47.0) % MCV (80.0-100.0) fL MCH (25.0-34.0) pg MCHC (32.0-36.0) g/dL RDW Std Deviation (36.4-46.3) fL RDW Coeff of Ursula (11.5-14.5) % Plt Count (130-400) K/uL MPV (9.4-12.4) fL Sodium 136 (136-145) mmol/L Potassium 4.1 (3.5-5.1) mmol/L Chloride 106 (98-107) mmol/L Carbon Dioxide 24 (21-32) mmol/L Anion Gap 6 (3-11) BUN 15 (6-23) mg/dl Creatinine 0.80 (0.6-1.2) mg/dl Est Cr Clr Drug Dosing 124.1 ml/min Est GFR ( Amer) 103.9 ml/min Est GFR (Non-Af Amer) 89.7 ml/min BUN/Creatinine Ratio 18.8 (10-20) Glucose 132 H (70-99(Fasting)) mg/dl POC Glucose 113 H 138 H (70-99) mg/dl Calcium 8.5 L (8.6-10.3) mg/dl Random Vancomycin (10-20) mcg/ml Medications Administered Current Inpatient Medications Acetaminophen (Acetaminophen 500 Mg Tab) 1,000 mg PO Q8H PRN PRN Reason: MILD Pain Scale 1,2,3 & Pre PT Stop: 09/26/23 22:50 Last Admin: 08/29/23 21:41 Dose: 1,000 mg Bupropion HCl (Bupropion Xl 150 Mg Tabcr) 150 mg PO QAM [facility] Stop: 09/27/23 08:59 Last Admin: 09/02/23 08:22 Dose: 150 mg Dextrose (Dextrose 50% 50 Ml Syringe) 25 - 50 ml IV UD PRN; Protocol PRN Reason: Hypoglycemia Protocol Stop: 09/27/23 00:29 Divalproex Sodium (Divalproex Delay Release 250 Mg Tabec) 250 mg PO HS [facility] Stop: 09/27/23 20:59 Last Admin: 09/01/23 21:11 Dose: 250 mg Divalproex Sodium (Divalproex Delay Release 500 Mg Tab) 500 mg PO QAM [facility] Stop: 09/27/23 08:59 Last Admin: 09/02/23 08:22 Dose: 500 mg Docusate Sodium (Docusate Sodium 100 Mg Cap) 100 mg PO BID PRN PRN Reason: Constipation Stop: 09/27/23 09:59 Last Admin: 09/01/23 21:11 Dose: 100 mg Gabapentin (Gabapentin 600 Mg Tab) 600 mg PO BID [facility] Stop: 09/27/23 08:59 Last Admin: 09/02/23 08:21 Dose: 600 mg Glucagon (Glucagon For Inj 1 Mg Vial) 1 mg IM UD PRN; Protocol PRN Reason: Hypoglycemia Protocol Stop: 09/27/23 00:29 Glucose (Glucose 40% Gel 15 Gm Tube) 15 - 30 gm PO UD PRN; Protocol PRN Reason: Hypoglycemia Protocol Stop: 09/27/23 00:29 Glucose (Glucose 10 Tab/Tube) 4 - 8 tab PO UD PRN; Protocol PRN Reason: Hypoglycemia Protocol Stop: 09/27/23 00:29 Heparin Sodium (Beef Lung) (Heparin 10 Unit/Ml 5 Ml Flush) 5 ml FLUSH PRN PRN PRN Reason: Flush Stop: 09/27/23 16:29 Last Admin: 09/01/23 00:59 Dose: 5 ml Promethazine HCl 12.5 mg/ (Sodium Chloride) 50.5 mls @ 202 mls/hr IV Q6H PRN PRN Reason: Nausea &/or Vomiting Stop: 09/26/23 22:50 Cefepime HCl 2,000 mg/ Syringe 20 mls @ 5 mls/min IV Q8H [facility]; Protocol Stop: 10/09/23 01:14 Last Admin: 09/02/23 02:05 Dose: 5 mls/min Vancomycin HCl 1,500 mg/ (Sodium Chloride) 530 mls @ 200 mls/hr IV Q12 [facility] Stop: 10/12/23 08:14 Last Infusion: 09/02/23 00:00 Dose: Infused Insulin Aspart (Insulin Aspart Per Unit Charge) 0 units SC ACHS [facility] Stop: 09/28/23 17:29 Last Admin: 09/02/23 08:20 Dose: 8 units Insulin Glargine (Lantus Per Unit Charge) 5 units SC DAILY [facility] Stop: 09/30/23 08:59 Last Admin: 09/02/23 08:19 Dose: 5 units Levothyroxine Sodium (Levothyroxine Sodium 75 Mcg Tablet) 75 mcg PO DAILYBB [facility] Stop: 09/27/23 06:29 Last Admin: 09/02/23 05:51 Dose: 75 mcg Lorazepam (Lorazepam 0.5 Mg Tab) 0.5 mg PO Q8H PRN PRN Reason: sedation/anxiety Stop: 09/26/23 22:50 Melatonin (Melatonin 3 Mg Tab) 3 mg PO HS [facility] Stop: 09/27/23 00:14 Last Admin: 09/01/23 21:11 Dose: 3 mg Metoclopramide HCl (Metoclopramide Hcl Inj 5 Mg/Ml 2 Ml Vial) 10 mg IV Q6H PRN PRN Reason: Nausea &/or Vomiting Stop: 09/26/23 22:50 Miscellaneous (Carbohydrates For Hypoglycemia ) 15 - 30 gm PO UD PRN PRN Reason: Hypoglycemia Treatment Stop: 09/27/23 00:29 Miscellaneous Information (Vancomycin Consult Active) 1 each N/A UD PRN PRN Reason: Consult Stop: 09/26/23 20:45 Miscellaneous Information (Pharmacy Glycemic Mgmt Consult) 1 each N/A UD PRN PRN Reason: Consult Stop: 09/26/23 22:50 Naloxone HCl (Naloxone Hcl 0.4 Mg/1 Ml Vial/Carp) 0.1 mg IV Q5M PRN PRN Reason: Oversedation/respiratory dep Stop: 09/26/23 22:50 Ondansetron HCl (Ondansetron Inj 2 Mg/Ml 2 Ml Vial) 4 mg IV Q6H PRN PRN Reason: Nausea &/or Vomiting Stop: 09/26/23 22:50 Ondansetron HCl (Ondansetron 4 Mg Od Tab) 4 mg PO Q6H PRN PRN Reason: Nausea Stop: 09/26/23 22:50 Oxycodone HCl (Oxycodone Hcl Ir 5 Mg Tab (Immediate Release)) 5 - 10 mg PO Q4H PRN PRN Reason: mod to severe pain Stop: 09/10/23 22:50 Last Admin: 09/02/23 01:48 Dose: 10 mg Pantoprazole Sodium (Pantoprazole 40 Mg Tab) 40 mg PO QAM [facility] Stop: 09/27/23 08:59 Last Admin: 09/02/23 08:23 Dose: 40 mg Polyethylene Glycol (Polyethylene (Miralax) 17 Gm Pack) 17 gm PO DAILY PRN PRN Reason: Constipation Stop: 09/27/23 09:46 Propranolol HCl (Propranolol Hcl 10 Mg Tab) 10 mg PO BID [facility] Stop: 09/27/23 00:14 Last Admin: 09/02/23 08:23 Dose: 10 mg Quetiapine Fumarate (Quetiapine Fumarate 100 Mg Tablet) 100 mg PO QAM [facility] Stop: 09/27/23 08:59 Last Admin: 09/02/23 08:22 Dose: 100 mg Topiramate (Topiramate 50 Mg Tab) 150 mg PO BID [facility] Stop: 09/27/23 00:09 Last Admin: 09/02/23 08:21 Dose: 150 mg Venlafaxine HCl (Venlafaxine Hcl Xr 75 Mg Capxr) 75 mg PO QAM [facility] Stop: 09/27/23 08:59 Last Admin: 09/02/23 08:22 Dose: 75 mg Venlafaxine HCl (Venlafaxine Hcl Xr 150 Mg Capxr) 150 mg PO QAM [facility] Stop: 09/27/23 08:59 Last Admin: 09/02/23 08:21 Dose: 150 mg Zolpidem Tartrate (Zolpidem Tartrate 10 Mg Tab) 10 mg PO HS PRN PRN Reason: Sleep Stop: 09/27/23 00:14 Last Admin: 09/01/23 21:11 Dose: 10 mg
[2023-09-02] MEDS: VANCOMYCIN HCL 1,500 MG in SODIUM CHLORIDE 0.9% 500 ML IV SCH ×2 (08:49→21:16)
--- NOTE | 2023-09-02 08:58 | Orthopedic Progress Note ---
Date of Service September 02, 2023 Assessment & Plan (1) Status post incision and drainage: Plan: Maikel postoperative day 4 status post I&D right flank incision site from spinal cord stim battery pack. Ambulate ad nabor. Continue with pain control. Will discharge home once we receive final recommendations for antibiotic therapy from infectious disease. Admission and Anticipated Discharge Date Admission Date: August 27, 2023 Subjective Alicia is postoperative day 4 status post I&D right flank incision from spinal cord stim battery pack site. No radicular leg pain or numbness. No fevers or chills. Overall feels pretty good. She is anxious to return home. PICC line in place. Currently receiving vancomycin and cefepime. Currently awaiting final IV antibiotic therapy recommendations from infectious disease for discharge Review of Systems Review of Systems: All systems reviewed & are unremarkable except as noted in HPI & below Physical Exam Physical Exam: She sitting up in bed eating breakfast in no acute distress Incisions clean dry and intact Strength is intact bilateral lower extremities Results & Data Vital Signs (Past 12 Hours) Vital Signs Temp Pulse Resp BP Pulse Ox O2 Del Method 09/02/23 07:55 36.5 C 73 16 116/73 97 Room Air
--- NOTE | 2023-09-02 11:05 | Pharmacy Report ---
Pharmacy PK ABX Note - Date of Service September 02, 2023 - Assessment and Plan Assessment 43 year old F receiving vancomycin and cefepime for treatment of vertebral osteomyelitis/spinal cord stimulator infection * HPI significant for spinal cord stimulator implanted in 06/2023 which subsequently became infected and required removal in 07/2023. * Wound cx from back in 07/2023 grew MSSA. Patient discharged on Nafcillin 2 g IV q6h x 6 weeks. * I&D of lumbar flank on 08/29/23 * Labs/Vitals: Afebrile. No leukocytosis. Renal fxn stable. * Micro: lower back culture growing coagulase negative Staphylococcus. * Imaging: * 08/27/23 CT A/P: "Findings most compatible with osteomyelitis involving the T10 level with extension into the posterior elements. Extensive inflammatory process within the soft tissues from spinous process of T8-T10 with suggestion of a small abscess at the tip of the spinous process of T9 vertebra." * Infectious diseases consulted Plan Vancomycin * Current regimen: 1500 mg IV every 12 hours * Random level obtained 09/02/23 resulted as 16.9 mcg/mL. This is predicted to achieve target AUC/STEPHANIE of 400-600 mg/L.hr * Predicted AUC at steady state: 509 mg/L.hr * Repeat random level in about 3 days, depending on clinical status/renal function Cefepime * 2000 mg IV every 8 hours - appropriately dosed, no change Pharmacy will continue to follow and will adjust dose/frequency as necessary. Thank you. Pharmacy has transitioned to AUC monitoring for vancomycin. AUC/STEPHANIE is the preferred PK/PD target and is associated with decreased risk of nephrotoxicity compared to traditional trough targets.
[2023-09-02] MEDS: DIVALPROEX DELAY RELEASE 250 MG TABEC PO SCH (21:11)
[2023-09-02] MEDS: DOCUSATE SODIUM 100 MG CAP PO PRN (21:11)
[2023-09-02] MEDS: ZOLPIDEM TARTRATE 10 MG TAB PO PRN (21:11)
[2023-09-02] MEDS: MELATONIN 3 MG TAB PO SCH (21:16)
[2023-09-03] MEDS: CEFEPIME 2,000 MG in SYRINGE 0 ML IV SCH ×3 (02:20→17:57)
[2023-09-03] MEDS: LEVOTHYROXINE SODIUM 75 MCG TABLET PO SCH (06:17)
[2023-09-03 08:41] LABS: Hematocrit (blood only) 31.7 % (37.0-47.0); Hemoglobin 9.7 g/dl (12.0-16.0); Mean Corpuscular Hemoglobin 27.2 pg (25.0-34.0); Mean Corpuscular Hgb Conc 30.6 g/dL (32.0-36.0); Mean Corpuscular Volume 88.8 fL (80.0-100.0); Mean Platelet Volume 9.1 fL (9.4-12.4); Platelet Count 209 K/uL (130-400); RDW Coefficient of Variation 16.1 % (11.5-14.5); Red Blood Count 3.57 M/uL (4.20-5.40); White Blood Count 6.98 K/ul (4.8-10.8)
[2023-09-03 09:08] LABS: Calcium 8.5 mg/dl (8.6-10.3); Creatinine Clr Calc Pharmacy 122.5 ml/min; Est GFR (African American) 102.4 ml/min; Est GFR (Non-African American) 88.3 ml/min; Potassium 4.2 mmol/L (3.5-5.1)
[2023-09-03] MEDS: GABAPENTIN 600 MG TAB PO SCH ×2 (09:12→21:14)
[2023-09-03] MEDS: DIVALPROEX DELAY RELEASE 500 MG TAB PO SCH (09:12)
[2023-09-03] MEDS: QUEtiapine FUMARATE 100 MG TABLET PO SCH (09:12)
[2023-09-03] MEDS: VENLAFAXINE HCL XR 75 MG CAPXR PO SCH (09:12)
[2023-09-03] MEDS: buPROPion XL 150 MG TABCR PO SCH (09:12)
[2023-09-03] MEDS: PROPRANOLOL HCL 10 MG TAB PO SCH ×2 (09:12→21:14)
[2023-09-03] MEDS: VENLAFAXINE HCL XR 150 MG CAPXR PO SCH (09:12)
[2023-09-03] MEDS: PANTOprazole 40 MG TAB PO SCH (09:12)
[2023-09-03] MEDS: TOPIRAMATE 50 MG TAB PO SCH ×2 (09:12→21:14)
[2023-09-03] MEDS: LANTUS PER UNIT CHARGE SC SCH (09:16)
[2023-09-03] MEDS: INSULIN ASPART PER UNIT CHARGE SC SCH ×4 (09:16→21:20)
[2023-09-03] MEDS: VANCOMYCIN HCL 1,500 MG in SODIUM CHLORIDE 0.9% 500 ML IV SCH ×2 (09:29→21:20)
--- NOTE | 2023-09-03 12:00 | Pharmacy Report ---
Pharmacy Glycemic Sign Off Nt - Date of Service September 03, 2023 - Assessment & Plan ASSESSMENT: * Pharmacy was consulted by Dr Montana on 08/27/23 for glycemic control and to write orders per [facility] inpatient glycemic control protocol. * Major changes made by pharmacy to antidiabetic regimen include: * Initiation of Lantus and Novolog * Patient has been receiving/requiring 29-30 units of insulin per day for adequate glycemic control * BSGs ranging 117- 146 mg/dl * Regimen has only required minor adjustments over the past 48hrs to achieve this level of control * Do not anticipate further changes in patient status that would quickly deteriorate glycemic control (i.e. patient to be NPO for upcoming procedure, steroids tapering, starting tube feedings, etc). * Please see recommendations for outpatient antidiabetic regimen below. PLAN FOR INPATIENT GLYCEMIC CONTROL: No changes needed to current regimen. * Continue basal insulin with Lantus 5 units SQ daily * Continue NovoLog per scale ACHS/Q6hrs while NPO * Goal range = 110 -140 mg/dl * CF = 30 mg/dl/unit * CR = 1 unit for ever 9 g CHO consumed * Pharmacy is signing off of glycemic consult and will no longer be making adjustments to inpatient regimen. Please feel free to re-consult if needed. Thank you.
--- NOTE | 2023-09-03 15:28 | Hospitalist Progress Note ---
Date of Service September 03, 2023 Assessment & Plan (1) Vertebral osteomyelitis: Plan: Acute osteomyelitis of thoracic spine Infection of spinal cord stimulator Postlaminectomy syndrome with chronic lumbar radiculopathy S/spinal cord stimulator placement on 07/24/2023 S/P I&D and evacuation of spinal cord stimulator and battery pack on 08/07/[address]:There is no evidence of acute fracture or malalignment involving the thoracic spine. Postlaminectomy change is seen at T10, and an intrathecal device has likely been removed. Correlate clinically. There is a pocket of infiltration and fluid identified in the soft tissues of the right lower back which contains antibiotic implants. This likely represents the site of a previously implanted device. A thin tract connects this inflammatory process to the soft tissues posterior to the thecal sac at the T10 laminectomy site where there is also inflammation, trace fluid, and probable antibiotic implants. There is no evidence of drainable fluid collection at this time on this unenhanced CT scan. The sharply marginated bony defect at T10 is likely on a postsurgical basis. Osteomyelitis is considered much less likely. Clinical correlation will be essential. Follow-up as clinically warranted. Spine Ortho consulted S/p Irrigation debridement right flank infection at the site of the previous battery pocket for the spinal cord stimulator 08/29 Previous wound cultures grew MSSA: Failed Nafcillin treatment Blood culture from 08/27 - No growth Wound culture from 08/28 -coag negative staph Operative culture and fungal culture from 08/29, no growth On IV Vanco and cefepime Appreciate ID input anticipate minimum 6-8 week duration of antibiotic therapy --awaiting final recs PICC in place, [facility], patient comfortable with IV abx at home from previous treatment DM II H/O diabetes mellitus HbA1c 7.3 Hold metformin, utilize Lantus and NovoLog per protocol while hospitalized Hypothyroidism Continue levothyroxine GERD Continue pantoprazole Morbid obesity BMI 46 H/O Traumatic brain injury/functional seizures Mood disorder Continue home medications Chronic anemia Hgb 9.7, at baseline Monitor CBC DVT PROPHYLAXIS TEDs/SCDs as per spine Ortho Dispo -awaiting final recommendations from ID, likely DC home with IV antibiotics Patient seen in collaboration with Dr. Navarro. Admission and Anticipated Discharge Date Admission Date: August 27, 2023 Supervising Physician Co-Signing Physician Notes Pt seen and examined by myself, Enedina Navarro MD on the day of service. Care was coordinated with RYAN Platt. 43yoF with acute osteomyelitis of thoracic spine and infection of her spinal cord stimulator. States she has no acute concerns, was resting comfortably on exam. Currently on Cefepime and Vancomycin, awaiting ID recs for discharge. Otherwise as above. Subjective Follow-up for T10 osteomyelitis. Patient seen and examined. Offers no complaints. Reports pain is well controlled. Denies numbness, tingling, weakness to lower extremities. Eager to be discharged. Physical Exam Constitutional: WD/WN, vitals as above no acute distress Respiratory: normal respiratory effort, lungs clear to auscultation Cardiovascular: Rate/Rhythm: regular rate and regular rhythm Vessels: normal peripheral pulses Extremities: no edema Gastrointestinal (Abdomen): Percussion/Palpation: abdomen soft; abdomen nontender Musculoskeletal: dressing in place to right flank, CDI. Pedal pushes and pulls strong BL. Skin: no rashes, warm and dry Neurologic: no focal motor deficits Psychiatric: A+Ox3, euthymic affect Results & Data Results & Data Vital Signs (Past 12 Hours) Vital Signs Temp Pulse Resp BP Pulse Ox O2 Del Method 09/03/23 14:54 36.8 C 72 16 110/72 97 Room Air 09/03/23 12:10 Room Air 09/03/23 07:22 36.7 C 72 16 109/74 97 Room Air Laboratory Results Short CBC 09/03/23 Range/Units 08:19 WBC 6.98 (4.8-10.8) K/ul Hgb 9.7 L (12.0-16.0) g/dl Hct 31.7 L (37.0-47.0) % Plt Count 209 (130-400) K/uL BMP 09/03/23 08:19 Sodium 137 Potassium 4.2 Chloride 107 Carbon Dioxide 23 BUN 13 Creatinine 0.81 Calcium 8.5 L
[2023-09-03] MEDS: oxyCODONE HCL IR 5 MG TAB (IMMEDIATE RELEASE) PO PRN (20:31)
[2023-09-03] MEDS: ZOLPIDEM TARTRATE 10 MG TAB PO PRN (21:13)
[2023-09-03] MEDS: DOCUSATE SODIUM 100 MG CAP PO PRN (21:13)
[2023-09-03] MEDS: DIVALPROEX DELAY RELEASE 250 MG TABEC PO SCH (21:14)
[2023-09-03] MEDS: MELATONIN 3 MG TAB PO SCH (21:20)
[2023-09-04] MEDS: oxyCODONE HCL IR 5 MG TAB (IMMEDIATE RELEASE) PO PRN (00:58)
[2023-09-04] MEDS: CEFEPIME 2,000 MG in SYRINGE 0 ML IV SCH ×3 (00:59→17:42)
[2023-09-04] MEDS: LEVOTHYROXINE SODIUM 75 MCG TABLET PO SCH (05:54)
[2023-09-04] MEDS: buPROPion XL 150 MG TABCR PO SCH (07:58)
[2023-09-04] MEDS: DIVALPROEX DELAY RELEASE 500 MG TAB PO SCH (07:58)
[2023-09-04] MEDS: QUEtiapine FUMARATE 100 MG TABLET PO SCH (07:59)
[2023-09-04] MEDS: GABAPENTIN 600 MG TAB PO SCH (07:59)
[2023-09-04] MEDS: PROPRANOLOL HCL 10 MG TAB PO SCH (07:59)
[2023-09-04] MEDS: PANTOprazole 40 MG TAB PO SCH (07:59)
[2023-09-04] MEDS: TOPIRAMATE 50 MG TAB PO SCH (08:00)
[2023-09-04] MEDS: VENLAFAXINE HCL XR 150 MG CAPXR PO SCH (08:00)
[2023-09-04] MEDS: VENLAFAXINE HCL XR 75 MG CAPXR PO SCH (08:00)
[2023-09-04] MEDS: LANTUS PER UNIT CHARGE SC SCH (08:07)
[2023-09-04] MEDS: INSULIN ASPART PER UNIT CHARGE SC SCH ×3 (08:08→17:42)
[2023-09-04] MEDS: VANCOMYCIN HCL 1,500 MG in SODIUM CHLORIDE 0.9% 500 ML IV SCH (09:13)
--- NOTE | 2023-09-04 13:03 | Communication Note ---
Date of Service: September 04, 2023 SUMMARY: Ms. Berkowitz is a 43-year-old woman with medical history of traumatic brain injury and spinal cord injury around 13 years ago status post spinal cord stimulator placement on 07/24), asthma, GERD, HTN, prediabetes, obstructive sleep apnea, and spinal stenosis who was admitted to [facility] on 08/07 because of worsening back pain with bilateral leg numbness of around 1 week duration. On 07/17, she underwent T10 laminectomy with placement of a temporary T8 through T10 spinal cord stimulator and on 07/24, she underwent removal of the temporary stimulator and placement of a permanent one. Around 10 days later, she started having worsening thoracic back pain with bilateral leg numbness. She saw her primary care physician who prescribed her antibiotics as outpatient without significant improvement which prompted her to come to the emergency department. On presentation, she was found to have drainage from her surgical site for which she underwent removal of the spinal cord stimulator and battery as well as I&D with revision laminectomy T10. Intraoperative cultures came back positive for MSSA.By the time I saw her, she was already on IV cefazolin; however, I decided to change to IV nafcillin for better [employer] penetration. Per our recommendations, she was discharged from [facility] on 08/14 completed 6-week course of IV nafcillin with anticipated end date of 09/18/2023. Unfortunately, she comes back on 08/28 after she started having drainage from the right flank incision site which was previous battery bed site. She was then started on broad- spectrum antibiotics and underwent another I&D of the right flank infected battery pocket with all intraoperative cultures negative to date. MICROBIOLOGY 08/07: Intraoperative culture from the battery site I&D positive for MSSA 08/08: 2 sets of blood culture negative 08/27: 2 sets of blood culture negative 08/28: Superficial wound culture growing coagulase-negative staph 08/29: 2 intraoperative bacterial wound culture negative 08/29: 2 intraoperative fungal tissue cultures negative IMAGING: CT thoracic spine on 08/28: 1. There is no evidence of acute fracture or malalignment involving the thoracic spine. 2. Postlaminectomy change is seen at T10, and an intrathecal device has likely been removed. Correlate clinically. 3. There is a pocket of infiltration and fluid identified in the soft tissues of the right lower back which contains antibiotic implants. This likely represents the site of a previously implanted device. A thin tract connects this inflammatory process to the soft tissues posterior to the thecal sac at the T10 laminectomy site where there is also inflammation, trace fluid, and probable antibiotic implants. There is no evidence of drainable fluid collection at this time on this unenhanced CT scan. 4. The sharply marginated bony defect at T10 is likely on a postsurgical basis. Osteomyelitis is considered much less likely. Clinical correlation will be essential. Follow-up as clinically warranted. Assessment & Plan (1) Infection of spinal cord stimulator - Battery pocket infection with nearby laminectomy surgical site infection. Cx from both I&Ds growing MSSA. (2) Deep incisional surgical site infection: (3) Vertebral osteomyelitis: (4) Status post incision and drainage - on 08/07 & 08/29 (5) MSSA (methicillin susceptible Staphylococcus aureus) infection: Plan - Since the only organism we have is MSSA from previous admission, I would recommend discontinuing all current antibiotics and starting on nafcillin for better [employer] penetration. I was not surprised that the intraop cultures from 08/29 I&D were negative as she was already on nafcillin which made them sterile. I believe the issue was a source control rather than organisms other than MSSA. So nafcillin for 6 weeks from the day of the last I&D. I will drop a note around noon - She will require a 6-week course of IV antibiotics from the the last I&D (08/29) with anticipated end date of Oct 10, 2023. - I will set an appointment for her with us in 4-6 weeks from today. FINAL IMPRESSION AND RECOMMENDATIONS: Syndrome Osteomyelitis Microbiology Staphylococcus aureus (MSSA) Antibiotic Nafcillin 2 g IV Q4 hours -or- 12 g IV continuous infusion over 24 hours daily End Date Oct 10, 2023 Vascular access: Do not remove PICC line until the infectious disease physician approves Recommended followup imaging studies: Not applicable LABORATORY MONITORING: Lab Test Frequency End Date BMP CBC with diff Q week Oct 10, 2023 Lab Test Frequency End Date CRP Q 2 weeks Oct 10, 2023 PROVIDERS: Following ID Physician ID clinic follow-up date Jaclyn Mendez Within 4-6 weeks
--- NOTE | 2023-09-04 14:10 | Discharge Summary ---
Date of Service September 04, 2023 Admission HPI Per Admitting Provider Kareen is a 43-year-old female well-known to us. She underwent recent I&D and evacuation of spinal cord stim and battery pack by Dr. Montana. She was sent home. She was doing well up until 4 days ago when she noticed drainage from her right flank incision/battery pack site associated with increased pain and numbness down her legs. At home she has been Amling with a walker. No bowel or bladder dysfunction. No perineum numbness. She notes some chills but no actual fevers. She is on IV nafcillin via PICC line at home. She has increased pain and numbness down her legs. Symptoms subsided a little bit on day 2 but yesterday it returned back to what they originally were therefore she called her office and advised her to come to the emergency room. Principal Diagnosis Infection of the spinal cord stimulator Discharge Data Allergies Allergy/AdvReac Type Severity Reaction Status Date / Time tramadol [From Ultram] Allergy Unknown Palpitation Verified 07/24/23 07:04 s adhesive Allergy Rash Verified 07/24/23 07:04 Consultations 08/27/23 21:02 ED Decision to Admit Stat 08/27/23 22:51 Consult Internal Medicine Routine 08/28/23 01:10 Consult Infectious Diseases Routine Procedures Performed Operation Date: 08/29/23 13:55 Actual Procedures p Incision and Drainage Lumbar Flank(Right) - Dionicio Montana DO Ordered Studies 08/27/23 17:27 CT Abd and Pelvis [CT abd pelvis IV con only] Stat 08/28/23 08:01 CT thoracic spine wo con Urgent Diabetes Follow up Diabetes Follow-up Needed for Newly Diagnosed Diabetes Hospital Course (1) Infection of spinal cord stimulator: Patient was admitted with draining incision from the spinal cord stimulator battery over the right flank. She underwent I&D the following day. Cultures were obtained and drain inserted. She improved dramatically from a pain standpoint and function over the course of her stay. Cultures eventually provided no change in therapy. She was subsequently discharged home on a course of IV antibiotics as outlined by infectious disease. We will see her back in the office as scheduled. Discharge orders instructions from the chart for further view. Total Time Total Time Spent Total Time Spent (In Minutes): 20 minutes Discharge Plan Discharge Items Patient Disposition: Home - Self-Care Reason For Visit: THORACIC INFECTION Discharge Diagnosis: Spinal cord stimulator infection status post removal Activity: As commented below Non-emergency contact: Primary Care Provider Call non-emergency contact if: you have any medication questions Follow-up/Referrals: Chitra Pacheco MD [Primary Care Provider] - (Dr Pacheco's office is aware of your discharge and will call you for a follow up appointment.) Diet: Regular Addtl Attending Provider Instructions: ACTIVITY RECOMMENDATIONS: SELF CARE INSTRUCTIONS AFTER A LAMINECTOMY 1. No prolonged sitting (less than 30 minutes for the first 3 weeks after surgery). 2. No bending, lifting more than 5 pounds, or twisting (roll like a log when turning in bed). 3. You may shower 3 days after surgery if no drainage from wound. Thoroughly dry wound. Do not soak in the tub. 4. Please walk as much as you can for exercise. Gradually increase the distance that you walk as your endurance increases. 5. You may drive in 7-10 days if you are comfortable and no longer requiring pain medications. SPECIAL CARE INSTRUCTIONS: VERY IMPORTANT TO READ AND REVIEW A. Your surgical incision has been closed with a cosmetic suture under the skin that will dissolve in about 6 weeks. In 14 days, you can use a pair of clean scissors and cut the suture that is left outside of the skin at the ends of your incision. B. Complications are uncommon, but please contact us if you have any signs or symptoms of: 1. wound infection (fever higher than 102.5 degrees F, redness, separation of wound, drainage, or increasing pain from the incision) 2. blood clots in legs (pain, swelling, redness and warmth in legs) 3. urinary tract infection (fever higher than 102.5 degrees, burning upon urination or increased frequency of urination) 4. nerve problems (inability to walk on your toes or heels, numbness, loss of bowel or bladder control) 5. any other symptoms that concern you. C. Please call the office at if you have any concerns or questions about your operation or recovery. MANAGING PAIN AFTER SPINAL SURGERY 1. Narcotic medication is intended for short-term use and will be provided for surgical pain. Surgical pain usually lasts for a period of 4-6 weeks. Narcotic medication includes Percocet, Vicodin, Darvocet, Tylenol #3 or Lortab. 2. Longer-term pain is more appropriately treated with non-narcotic medication such as Tylenol ES. 3. Muscle spasm is not appropriately treated with narcotics. Muscle relaxers such as Soma, Flexeril or Skelaxin can be used along with Tylenol ES. 4. Remember that we all live with some "aches and pains". This is not unusual or uncommon after an injury or as we get older. 5. We will provide appropriate medication within the normal guidelines of their prescribed use. We will also be very cautious and aware of potential abuse and extended duration of patients' medication needs. 6. Please allow 2-3 days to process refills. Prescriptions will not be mailed but must be picked up at the office. FOLLOW UP VISIT: Keep your scheduled follow-up appointment. Any questions, please call the office at . Pending Studies at Discharge: No Stand-Alone Forms: My [facility] [employer], Smoking Cessation Medications and DC Order Prescriptions: New oxycodone 5 mg tablet 5 mg PO Q6H PRN (Reason: pain) Qty: 30 0RF Continued venlafaxine [Effexor XR] 75 mg Capsule,Extended Release 24hr 75 mg PO QAM gabapentin 600 mg Tablet 600 mg PO AMHS divalproex [Depakote] 250 mg Tablet,Delayed Release (Dr/Ec) 250 mg PO HS Rx Instructions: 9pm venlafaxine [Effexor XR] 150 mg Capsule,Extended Release 24hr 150 mg PO QAM melatonin 3 mg Tablet 3 mg PO HS divalproex [Depakote] 500 mg Tablet,Delayed Release (Dr/Ec) 500 mg PO AMHS quetiapine [Seroquel] 100 mg Tablet 100 mg PO HS acetaminophen [Acetaminophen Extra Strength] 500 mg Tablet 1,000 mg PO Q6 PRN (Reason: Pain) propranolol 10 mg Tablet 10 mg PO AMHS omeprazole 20 mg Capsule,Delayed Release(Dr/Ec) 40 mg PO QAM zolpidem [Ambien] 10 mg Tablet 10 mg PO HS bupropion HCl [Wellbutrin XL] 150 mg Tablet Extended Release 24 Hr 150 mg PO QAM oxycodone 5 mg tablet 5 mg PO Q6H PRN (Reason: pain) Qty: 30 0RF topiramate 100 mg tablet 150 mg PO AMHS Rx Instructions: 1 & 1/2 tablet dose diclofenac sodium 75 mg tablet,delayed release (DR/EC) 75 mg PO AMHS nafcillin 3 g IV, .OVER 24 HOURS Rx Instructions: via ez-pump ergocalciferol (vitamin D2) [Vitamin D2] 1,250 mcg (50,000 unit) capsule 1,250 mcg PO WK Rx Instructions: tuesdays metformin 500 mg tablet extended release 24 hr 500 mg PO QAM levothyroxine 75 mcg Tablet 75 mcg PO DAILYBB albuterol sulfate 90 mcg/actuation HFA aerosol inhaler 1 - 2 inh INHALATION Q6 PRN (Reason: Shortness Of Breath) Discharge Orders: Discharge Order (Routine); Ordered 09/04/23 Ordered By: Dionicio Ott/Other Patient Handouts: Diabetes: Meal Planning, Type 2 Diabetes Admission Data Admit Date/Time: 08/27/23 21:14 Attending Provider: Dionicio Montana Admit Provider: Dionicio Montana Primary Care Provider: Chitra Pacheco Other Providers: Dionicio Montana; Bev Hernandez; Jaclyn Mendez; Venus Nixon; Enedina Navarro
--- NOTE | 2023-09-04 15:39 | Hospitalist Progress Note ---
Date of Service September 04, 2023 Assessment & Plan (1) Vertebral osteomyelitis: Plan: Acute osteomyelitis of thoracic spine Infection of spinal cord stimulator Postlaminectomy syndrome with chronic lumbar radiculopathy S/spinal cord stimulator placement on 07/24/2023 S/P I&D and evacuation of spinal cord stimulator and battery pack on 08/07/[address]:There is no evidence of acute fracture or malalignment involving the thoracic spine. Postlaminectomy change is seen at T10, and an intrathecal device has likely been removed. Correlate clinically. There is a pocket of infiltration and fluid identified in the soft tissues of the right lower back which contains antibiotic implants. This likely represents the site of a previously implanted device. A thin tract connects this inflammatory process to the soft tissues posterior to the thecal sac at the T10 laminectomy site where there is also inflammation, trace fluid, and probable antibiotic implants. There is no evidence of drainable fluid collection at this time on this unenhanced CT scan. The sharply marginated bony defect at T10 is likely on a postsurgical basis. Osteomyelitis is considered much less likely. Clinical correlation will be essential. Follow-up as clinically warranted. Spine Ortho consulted S/p Irrigation debridement right flank infection at the site of the previous battery pocket for the spinal cord stimulator 08/29 Previous wound cultures grew MSSA Blood culture from 08/27 - No growth Wound culture from 08/28 -coag negative staph Operative culture and fungal culture from 08/29, no growth On IV Vanco and cefepime ID consulted, recommend resuming IV nafcillin (12 g infusion over 24-hours) at discharge for 6 weeks from the date of the last I&D, anticipated end date of 10/10/2023. PICC in place, has [facility] set up, patient comfortable with IV abx at home from previous treatment DM II H/O diabetes mellitus HbA1c 7.3 Hold metformin, utilize Lantus and NovoLog per protocol while hospitalized Hypothyroidism Continue levothyroxine GERD Continue pantoprazole Morbid obesity BMI 46 H/O Traumatic brain injury/functional seizures Mood disorder Continue home medications Chronic anemia Hgb 9.7, at baseline Monitor CBC DVT PROPHYLAXIS TEDs/SCDs as per spine Ortho Dispo - medically stable for discharge today with IV antibiotic plan in place Patient seen in collaboration with Dr. Navarro. Admission and Anticipated Discharge Date Admission Date: August 27, 2023 Supervising Physician Co-Signing Physician Notes Pt seen and examined by myself, Enedina Navarro MD on the day of service. Care was coordinated with RYAN Platt. 43yoF with acute osteomyelitis of thoracic spine and infection of her spinal cord stimulator. States she has no acute concerns, was resting comfortably on exam. Wanted to be discharged. Currently on Cefepime and Vancomycin, ID recommending IV Nafcillin 2g IV Q4 hours -or- 12 g IV continuous infusion over 24 hours daily for 6 weeks. Otherwise as above. Subjective Follow-up for T10 osteomyelitis. Patient seen and examined. Eager to be discharged. Reports pain is well controlled. Ambulating without issue. Denies numbness, tingling, weakness to lower extremities. No bowel or bladder dysfunction. Physical Exam Constitutional: WD/WN, vitals as above no acute distress Respiratory: normal respiratory effort, lungs clear to auscultation Cardiovascular: Rate/Rhythm: regular rate and regular rhythm Vessels: normal peripheral pulses Extremities: no edema Gastrointestinal (Abdomen): Percussion/Palpation: abdomen soft; abdomen nontender Musculoskeletal: Strength strong and equal BLE Skin: no rashes, warm and dry Dressing CDI right flank Neurologic: no focal motor deficits Psychiatric: A+Ox3, euthymic affect Results & Data Results & Data Vital Signs (Past 12 Hours) Vital Signs Temp Pulse Resp BP Pulse Ox O2 Del Method 09/04/23 15:10 36.6 C 78 16 109/74 97 Room Air 09/04/23 08:30 Room Air 09/04/23 07:56 36.6 C 72 16 132/84 99 Room Air
== END 2023-09-04 20:10 | disposition home or self-care (01) | DRG 540 ==
LOC: ED 13:48 → EDINP 21:14 → 3W 22:51
DX: Z88.8 Allergy status to other drugs, medicaments and biological substances; M96.1 Postlaminectomy syndrome, not elsewhere classified; Z88.6 Allergy status to analgesic agent; M54.16 Radiculopathy, lumbar region; K21.9 Gastro-esophageal reflux disease without esophagitis; M46.24 Osteomyelitis of vertebra, thoracic region; E11.9 Type 2 diabetes mellitus without complications; B95.61 Methicillin susceptible Staphylococcus aureus infection as the cause of diseases classified elsewhere; Z79.899 Other long term (current) drug therapy; R56.9 Unspecified convulsions; E66.01 Morbid (severe) obesity due to excess calories; I10 Essential (primary) hypertension; F17.290 Nicotine dependence, other tobacco product, uncomplicated; Z68.42 Body mass index [BMI] 45.0-49.9, adult; D64.9 Anemia, unspecified; Z87.820 Personal history of traumatic brain injury; Z79.890 Hormone replacement therapy; Z79.84 Long term (current) use of oral hypoglycemic drugs; E89.0 Postprocedural hypothyroidism